=== PATIENT | female | born 1935 | race Caucasian/White ===

== ENCOUNTER 2019-09-11 16:11 | Inpatient (IN) | payer OTHER ==
--- NOTE | 2019-09-11 16:33 | RAD REPORT ---
EXAM DESCRIPTION: CT - Ct Stroke Brain Wo Cont - 09/11/2019 4:21 pm CLINICAL HISTORY: APHASIA Headache, drowsiness, CVA symptomology COMPARISON: Ct Stroke Brain Wo Cont dated 03/19/2017 TECHNIQUE: All CT scans are performed using dose optimization technique as appropriate and may inclu de automated exposure control or mA/KV adjustment according to patient size. FINDINGS: No intracranial hemorrhage, hydrocephalus or extra-axial fluid collection.Moderate general ized brain atrophy is present with mild periventricular and deep white matter chronic microvascular i schemic changes.No areas of brain edema or evidence of midline shift. Right vertebral atherosclerosis . The paranasal sinuses and mastoids are clear. The calvarium is intact. IMPRESSION: No acute intracranial abnormality. The findings were discussed with Dr. Hayden in the emergency room on 09/11/2019 at 4:28 p.m. by alayna clay.
[2019-09-11 16:39] LABS: Absolute Lymphocytes (CBC) 2.2 K/uL (0.7-4.9); Basophils % 1.8 % (0-1.3); Hematocrit 42.1 % (36.0-45.0); Lymphocytes % 24.3 % (15.3-44.8); MPV 8.4 fL (7.6-11.3); RBC Red Blood Cell Count 4.76 M/uL (3.86-4.86)
[2019-09-11] MEDS ORDERED: NA CHLORIDE 0.9% 0 ML IV ONE (16:42)
[2019-09-11] MEDS ORDERED: ALTEPLASE 0 ML IV ONE (16:43)
--- NOTE | 2019-09-11 16:47 | RAD REPORT ---
EXAM DESCRIPTION: RAD - Chest Single View - 09/11/2019 4:40 pm CLINICAL HISTORY: stroke protocol Chest pain. COMPARISON: Chest Single View dated 03/19/2017; CHEST PA AND LAT 2 VIEW dated 10/04/2011 FINDINGS: Portable technique limits examination quality. Mild interstitial opacities bilaterally suggests mild interstitial pulmonary edema. Small pleural eff usions suspected. The heart is moderately enlarged in size. No displaced fractures. IMPRESSION: Mild CHF.
[2019-09-11] MEDS ORDERED: DILTIAZEM 125 MG in NS 125 ML IVPB SCH (17:00)
[2019-09-11 17:28] LABS: Protime INR 0.95
--- NOTE | 2019-09-11 17:29 | ER ---
Nurse's Notes [facility] Name: Chelsey Santillan Age: 84 yrs Sex: Female : 1935 Arrival Date: 09/11/2019 Time: 16:14 Bed 6 Private MD: Diagnosis: Ischemic CVA;Hypertensive heart disease Presentation: 09/10 16:14 Chief complaint: Patient states: Acute onset of aphasia, right sided facial droop with ll1 drooling, right side not moving well for 30 min. TERRITORY SUPERVISOR per . Coronavirus screen: Ebola Screen: Patient denies travel to an Ebola-affected area in the 21 days before illness onset. Risk Assessment: Do you want to hurt yourself or someone else? Patient reports no desire to harm self or others. Onset of symptoms was September 11, 2019. 16:14 Acuity: NICOLE 2 ll1 16:14 Method Of Arrival: Ambulatory ll1 16:39 Initial Sepsis Screen: Does the patient meet any 2 criteria? RR > 20 per min. No. sv Patient's initial sepsis screen is negative. Does the patient have a suspected source of infection? No. Patient's initial sepsis screen is negative. Triage Assessment: 16:14 General: Appears in no apparent distress. uncomfortable, well developed, Behavior is sv cooperative, appropriate for age, quiet. Pain: Denies pain. Neuro: Level of Consciousness is awake, alert, obeys commands, Oriented to none unable to speak, pt is aphasic. [place] are equal bilaterally Moves all extremities. Full function Gait is steady, Speech with expressive aphasia noted, Facial droop on right. Cardiovascular: Rhythm is sinus rhythm. Respiratory: Airway is patent Respiratory effort is even, unlabored, Respiratory pattern is symmetrical, tachypnea. Derm: Skin is pink, warm \T\ dry. Historical: - Allergies: 16:16 Ciprofloxacin; sv 16:16 Morphine; sv 16:16 novicaine; sv 16:16 Ciprofloxacin; ll1 16:16 Morphine; ll1 16:16 novicaine; ll1 - PMHx: 16:16 Hyperlipidemia; Hypertension; sv 16:16 Hyperlipidemia; Hypertension; ll1 - PSHx: 16:16 Knee surgery; sv 16:16 Knee surgery; ll1 - Immunization history:: Adult Immunizations unknown. - Social history:: Smoking status: unknown. Screenin:32 Patient has been NPO before screening. The patient is alert, able to follow commands. ss The patient exhibits slurred or garbled speech. The patient is exhibiting difficulty speaking. The patient is exhibiting difficulty understanding words. The patient is unable to swallow own secretions without drooling or the need for suction. Bedside swallow screening discontinued. Patient kept NPO until cleared by Speech Therapy or Physician. The patient failed the bedside swallow screening. The patient will be kept NPO until cleared by Speech Therapy or Physician. Provider notified of bedside swallow screening results: Todd Hayden MD. 16:39 Abuse screen: Denies threats or abuse. Denies injuries from another. Nutritional sv screening: No deficits noted. Tuberculosis screening: No symptoms or risk factors identified. Fall Risk No fall in past 12 months (0 pts). Secondary diagnosis (15 points) impaired mobility, IV access (20 points). Ambulatory Aid- None/Bed Rest/Nurse Assist (0 pts). Gait- Weak (10 pts.). Mental Status- Overestimates/Forgets Limitations (15 pts.). Total Reyes Fall Scale indicates High Risk Score (45 or more points). Fall prevention measures have been instituted. Side Rails Up X 2 Placed Close to Nursing Station Frequent Obs/Assessments Occuring Family Present and informed to notify staff if the need to leave the bedside As available patient and family educated on Fall Prevention Program and Strategies. Assessment: 16:13 Reassessment: Pt to CT. sv 16:15 Reassessment: Pt back from CT. sv 16:37 Reassessment: Dr Hayden at bedside speaking with spouse regarding possible TPA. sv 16:50 Reassessment: Dr Hayden pt is not a candidate for TPA because the spouse gave the pt sv his Eliquis of 5 mg PO TERRITORY SUPERVISOR. 17:41 Reassessment: Patient appears in no apparent distress at this time. No changes from sv previously documented assessment. Patient and/or family updated on plan of care and expected duration. Pain level reassessed. 18:16 Reassessment: Patient appears in no apparent distress at this time. No changes from sv previously documented assessment. Patient and/or family updated on plan of care and expected duration. Pain level reassessed. Spouse at the bedside. 18:41 Reassessment: Patient appears in no apparent distress at this time. No changes from sv previously documented assessment. Patient and/or family updated on plan of care and expected duration. Pain level reassessed. 18:59 Reassessment: Patient appears in no apparent distress at this time. No changes from sv previously documented assessment. Patient and/or family updated on plan of care and expected duration. Pain level reassessed. 19:10 Reassessment: Informed Hector RN and Tristan RN that pt is to get a total of 20 mg sv Hydralazine in 5 mg increments and to keep SBP above [address] Hayden. 19:20 General: Appears in no apparent distress. comfortable, Behavior is calm, cooperative, rr5 appropriate for age. 19:20 Pain: Unable to use pain scale. aphasic. Neuro: Level of Consciousness is awake, alert, rr5 Oriented to person, place, time, Paralysis in right arm(s) Speech with expressive aphasia noted, Facial droop on right, Pupils are sluggish. Cardiovascular: Capillary refill < 3 seconds Patient's skin is warm and dry. Respiratory: Airway is patent Respiratory effort is even, Respiratory pattern is regular, symmetrical, tachypnea. GI: No signs and/or symptoms were reported involving the gastrointestinal system. : No signs and/or symptoms were reported regarding the genitourinary system. EENT: No signs and/or symptoms were reported regarding the EENT system. Derm: Skin is intact, is healthy with good turgor, Skin temperature is warm. Musculoskeletal: Capillary refill < 3 seconds. 20:10 Reassessment: Patient appears in no apparent distress at this time. cardizem drip rr5 titrate to 5 mg/hr. for the BP 155/60 mmHg. awaiting for room assignment. 20:42 Reassessment: Patient appears in no apparent distress at this time. for ICU admission rr5 awaiting for in patient orders. 21:47 Reassessment: Patient appears in no apparent distress at this time. cardizem drip rr5 increased to 15 h/hr BP 228/206 mmHg. 22:10 Reassessment: false teeth and necklace given to . rr5 23:00 Reassessment: Patient appears in no apparent distress at this time. diaper changed rr5 positive urine. for transfer to ICU. 23:18 Reassessment: Patient appears in no apparent distress at this time. transferred to ICU rr5 awake GCS 11/15 vitally stable, with IV cannula G 22 at right wrist intact ongoing cardizem drip. Vital Signs: 16:14 Resp 20; ll1 16:30 BP 245 / 77; Pulse 84; Resp 27; Temp 98.8; Pulse Ox 96% on R/A; sv 16:59 BP 244 / 84; Pulse 80; Resp 30; Pulse Ox 93% on R/A; sv 17:18 BP 248 / 95; Pulse 82; Resp 27; Pulse Ox 97% on 2 lpm NC; sv 17:40 BP 186 / 119; Pulse 79; Resp 21; Pulse Ox 97% on 2 lpm NC; sv 18:06 BP 231 / 83; Pulse 80; Resp 24; Pulse Ox 97% on 2 lpm NC; sv 18:19 BP 232 / 75; Pulse 71; Resp 25; Pulse Ox 98% on 2 lpm NC; sv 18:33 BP 229 / 70; Pulse 75; Resp 35; Pulse Ox 97% on 2 lpm NC; sv 18:58 BP 213 / 69; Pulse 78; Resp 39; Pulse Ox 100% on 2 lpm NC; sv 19:26 BP 198 / 130; Pulse 80; Resp 33; Temp 98.5; Pulse Ox 100% ; rr5 20:14 BP 155 / 60; Pulse 96; Resp 28; Pulse Ox 98% on 2 lpm NC; rr5 20:15 BP 155 / 60; rr5 21:00 BP 185 / 95; Pulse 93; Resp 31; Pulse Ox 98% on 3 lpm NC; rr5 21:47 BP 194 / 65; rr5 21:47 BP 194 / 65; Pulse 90; Resp 27; Pulse Ox 98% on 3 lpm NC; rr5 22:30 BP 228 / 206; Pulse 88; Resp 29; Temp 98.4; Pulse Ox 99% on 3 lpm NC; rr5 23:18 BP 160 / 137; Pulse 89; Resp 27; Temp 98.2; Pulse Ox 98% 3 lpm ; rr5 16:59 Pt placed on O2 \T\ 2L per NC. sv [place] Coma Score: 19:26 Eye Response: spontaneous(4). Verbal Response: none(1). Motor Response: obeys rr5 commands(6). Total: 11. 20:14 Eye Response: spontaneous(4). Verbal Response: none(1). Motor Response: obeys rr5 commands(6). Total: 11. 21:00 Eye Response: spontaneous(4). Verbal Response: none(1). Motor Response: obeys rr5 commands(6). Total: 11. :47 Eye Response: spontaneous(4). Verbal Response: none(1). Motor Response: obeys rr5 commands(6). Total: 11. 22:30 Eye Response: spontaneous(4). Verbal Response: none(1). Motor Response: obeys rr5 commands(6). Total: 11. 23:18 Eye Response: spontaneous(4). Verbal Response: none(1). Motor Response: obeys rr5 commands(6). Total: 11. 19:26 aphasic rr5 NIH Stroke Scale Scores: 16:19 NIHSS Score: 8 sv ED Course: 16:14 Patient arrived in ED. sv 16:14 Dilcia Jean Baptiste, ELINOR is Primary Nurse. sv 16:15 Triage completed. ll1 16:16 Todd Hayden MD is Attending Physician. kdr 16:16 Patient placed. ll1 16:21 CT Stroke Brain w/o Contrast In Process Unspecified. EDMS 16:24 Missed attempt(s): 22 gauge in right antecubital area. done by Milvia ALDRICH. Bleeding sv controlled, band aid applied, catheter tip intact. 16:26 Inserted saline lock: 22 gauge in right wrist, using aseptic technique. Blood sv collected. Flushed left with 5 ml normal saline. 16:32 Patient has correct armband on for positive identification. Placed in gown. Bed in low ss position. Call light in reach. Side rails up X2. telemetry monitor on. Pulse ox on. NIBP on. 16:40 Stroke CXR 1 View In Process Unspecified. EDMS 16:55 Inserted saline lock: 22 gauge in left wrist, using aseptic technique. Flushed left sv with 5 ml normal saline. 17:24 Mohan Johnson MD is Hospitalizing Provider. kdr 18:16 Awaiting bed assignment. sv 18:44 IV discontinued, intact, bleeding controlled, Pressure dressing applied, to the left sv wrist. 19:10 Report given to Tristan ALDRICH and Hector ALDRICH. sv 22:54 No provider procedures requiring assistance completed. rr5 Administered Medications: 16:58 Drug: Cardizem 5 mg/hr Route: IV; Rate: calculated rate; Site: right wrist; sv 17:18 Follow up: Rate change 7.5 calculated rate sv 17:41 Follow up: Response: No adverse reaction; Rate change 10 calculated rate sv 18:07 Follow up: Rate change 12.5 calculated rate sv 18:25 Follow up: Rate change 15 calculated rate sv 20:15 Follow up: BP 155 / 60; Rate change 5 mg/hr rr5 21:00 Follow up: Response: Blood pressure is elevated; Rate change 10 mg/hr rr5 21:47 Follow up: BP 194 / 65; Rate change 15 mg/hr rr5 22:35 Follow up: Response: Blood pressure is lowered; IV Status: Infusion continued upon rr5 admission 18:22 Drug: hydrALAZINE 2.5 mg Route: IV; Rate: calculated rate; Site: left wrist; sv 18:23 Follow up: Response: No adverse reaction; IV Status: Completed infusion sv 18:41 Drug: hydrALAZINE 2.5 mg Route: IV; Rate: calculated rate; Site: right wrist; sv 18:42 Follow up: Response: No adverse reaction; IV Status: Completed infusion sv 18:58 Drug: hydrALAZINE 5 mg Route: IV; Rate: calculated rate; Site: right wrist; sv 18:59 Follow up: Response: No adverse reaction; IV Status: Completed infusion; IV Intake: sv 0.25ml 19:30 Drug: hydrALAZINE 5 mg Route: IV; Rate: calculated rate; Site: right wrist; rr5 20:30 Follow up: Response: No adverse reaction; Blood pressure is lowered; IV Status: rr5 Completed infusion 22:30 Drug: hydrALAZINE 5 mg {Note: BP 228/206 mmHg.} Route: IV; Rate: calculated rate; Site: rr5 right wrist; 22:35 Follow up: Response: No adverse reaction; Blood sugar is lowered; IV Status: Infusion rr5 continued upon admission Intake: 18:59 IV: 0ml; Total: 0ml. sv Outcome: 17:28 Decision to Hospitalize by Provider. kdr 22:35 Admitted to ICU accompanied by nurse, via stretcher, room 6. rr5 22:35 Condition: stable rr5 22:35 Instructed on the need for admit. 23:47 Patient left the ED. rr5 NIH Stroke Scale - NIH Stroke Score Date: 09/11/2019 Time: 16:19 Total Score = 8 1a. Level of Consciousness (LOC) - 0(Alert) 1b. Level of Consciousness (LOC) (Year \T\ Age) - 2(Neither) 1c. LOC Commands (Open \T\ Closes Eyes/Health Safety And Environment Manager) - 0(Both) 2. Best Gaze (Lateral Gaze Paresis) - 0(Normal) 3. Visual Field Loss - 0(No visual loss) 4. Facial Palsy - 1(Minor Paralysis) 5a. Left Arm: Motor (10-second hold) - 0(No drift) 5b. Right Arm: Motor (10-second hold) - 0(No drift) 6a. Left Leg: Motor (5-second hold - always test supine) - 0(No drift) 6b. Right Leg: Motor (5-second hold - always test supine) - 0(No drift) 7. Limb Ataxia (finger/nose \T\ heel/ling - test with eyes open) - 0(Absent) 8. Sensory Loss (pinprick arms/legs/face) - 0(Normal) 9. Best Language: Aphasia (description/naming/reading) - 3(Mute, global aphasia) 10. Dysarthria (speech clarity - read or repeat words) - 2(Severe) 11. Extinction and Inattention (visual/tactile/auditory/spatial/personal) - 0(No abnormality) Initials: sv Signatures: Dispatcher [employer] EDDilcia Mcghee, RN RN sv Todd Hayden MD MD [facility] Milvia Martines RN RN ss Tristan Shah RN RN rr5 Stephane Ellis RN RN ll1 Corrections: (The following items were deleted from the chart) 16:59 16:26 Inserted saline lock: 22 gauge in left wrist, using aseptic technique. sv Blood collected. Flushed left with 5 ml normal saline sv 16:59 16:24 Missed attempt(s): 22 gauge in left antecubital area. done by Milvia ALDRICH. sv Bleeding controlled, band aid applied, catheter tip intact. sv 17:24 16:59 BP 244 / 84; Pulse 80bpm; Resp 30bpm; Pulse Ox 94% RA; sv sv 20:26 19:20 Respiratory: Airway is patent Respiratory effort is even, unlabored, rr5 Respiratory pattern is regular, symmetrical, rr5
--- NOTE | 2019-09-11 17:29 | EDPHYS ---
Physician Documentation [facility] Name: Chelsey Santillan Age: 84 yrs Sex: Female : 1935 Arrival Date: 09/11/2019 Time: 16:14 Bed 6 Private MD: ED Physician Todd Hayden HPI: 09/10 18:04 This 84 yrs old Female presents to ER via Ambulatory with complaints of S/S kdr of Possible Stroke. 18:04 The patient presents to the emergency department with weakness of the right upper kdr extremity, a speech or higher order brain function problem, aphasia, that is marked, that is complete. Onset: The symptoms/episode began/occurred suddenly, just prior to arrival, Some time between 2:00 PM and 3:15 PM. Context: occurred at home, occurred while the patient was at rest, sitting. Associated signs and symptoms: The patient has no apparent associated signs or symptoms. Severity of symptoms: At their worst the symptoms were incapacitating in the emergency department the symptoms are unchanged. Patient's baseline: Neuro: alert and fully oriented, Motor: no deficits, Ambulation: walks without assistance, Speech: Unable to speak, The patient has a previous history of. Current symptoms: Expressive aphasia . The patient has not experienced similar symptoms in the past. The patient has not recently seen a physician. Historical: - Allergies: 16:16 Ciprofloxacin; sv 16:16 Morphine; sv 16:16 novicaine; sv 16:16 Ciprofloxacin; ll1 16:16 Morphine; ll1 16:16 novicaine; ll1 - PMHx: 16:16 Hyperlipidemia; Hypertension; sv 16:16 Hyperlipidemia; Hypertension; ll1 - PSHx: 16:16 Knee surgery; sv 16:16 Knee surgery; ll1 - Immunization history:: Adult Immunizations unknown. - Social history:: Smoking status: unknown. ROS: 18:04 Constitutional: Negative for fever, chills, and weight loss, Eyes: Negative for injury, kdr pain, redness, and discharge, ENT: Negative for injury, pain, and discharge, Neck: Negative for injury, pain, and swelling, Cardiovascular: Negative for chest pain, palpitations, and edema, Respiratory: Negative for shortness of breath, cough, wheezing, and pleuritic chest pain, Abdomen/GI: Negative for abdominal pain, nausea, vomiting, diarrhea, and constipation, Back: Negative for injury and pain, : Negative for injury, bleeding, discharge, and swelling, MS/Extremity: Negative for injury and deformity, Skin: Negative for injury, rash, and discoloration, Psych: Negative for depression, anxiety, suicide ideation, homicidal ideation, and hallucinations, Allergy/Immunology: Negative for hives, rash, and allergies, Endocrine: Negative for neck swelling, polydipsia, polyuria, polyphagia, and marked weight changes, Hematologic/Lymphatic: Negative for swollen nodes, abnormal bleeding, and unusual bruising. 18:04 Neuro: Positive for speech changes, weakness, Right upper extremity slightly weak. Exam: 18:04 Constitutional: This is a well developed, well nourished patient who is awake, alert, kdr and in no acute distress. Eyes: Pupils equal round and reactive to light, extra-ocular motions intact. Lids and lashes normal. Conjunctiva and sclera are non-icteric and not injected. Cornea within normal limits. Periorbital areas with no swelling, redness, or edema. Neck: Trachea midline, no thyromegaly or masses palpated, and no cervical lymphadenopathy. Supple, full range of motion without nuchal rigidity, or vertebral point tenderness. No Meningismus. Chest/axilla: Normal chest wall appearance and motion. Nontender with no deformity. No lesions are appreciated. Cardiovascular: Regular rate and rhythm with a normal S1 and S2. No gallops, murmurs, or rubs. Normal PMI, no JVD. No pulse deficits. Respiratory: Lungs have equal breath sounds bilaterally, clear to auscultation and percussion. No rales, rhonchi or wheezes noted. No increased work of breathing, no retractions or nasal flaring. Abdomen/GI: Soft, non-tender, with normal bowel sounds. No distension or tympany. No guarding or rebound. No evidence of tenderness throughout. Back: No spinal tenderness. No costovertebral tenderness. Full range of motion. Skin: Warm, dry with normal turgor. Normal color with no rashes, no lesions, and no evidence of cellulitis. MS/ Extremity: Pulses equal, no cyanosis. Neurovascular intact. Full, normal range of motion. Psych: Awake, alert, with orientation to person, place and time. Behavior, mood, and affect are within normal limits. 18:04 Neuro: Orientation: unable to test, Mentation: responsive to voice able to follow commands, slow to respond, Memory: unable to test, Cranial nerves: facial droop noted on right, Cerebellar function: heel to ling testing is normal, Motor: moves all fours, strength is 5/5 in the left arm, right leg and left leg, strength is 4/5 in the right arm, Gait: not tested. Vital Signs: 16:14 Resp 20; ll1 16:30 BP 245 / 77; Pulse 84; Resp 27; Temp 98.8; Pulse Ox 96% on R/A; sv 16:59 BP 244 / 84; Pulse 80; Resp 30; Pulse Ox 93% on R/A; sv 17:18 BP 248 / 95; Pulse 82; Resp 27; Pulse Ox 97% on 2 lpm NC; sv 17:40 BP 186 / 119; Pulse 79; Resp 21; Pulse Ox 97% on 2 lpm NC; sv 18:06 BP 231 / 83; Pulse 80; Resp 24; Pulse Ox 97% on 2 lpm NC; sv 18:19 BP 232 / 75; Pulse 71; Resp 25; Pulse Ox 98% on 2 lpm NC; sv 18:33 BP 229 / 70; Pulse 75; Resp 35; Pulse Ox 97% on 2 lpm NC; sv 18:58 BP 213 / 69; Pulse 78; Resp 39; Pulse Ox 100% on 2 lpm NC; sv 19:26 BP 198 / 130; Pulse 80; Resp 33; Temp 98.5; Pulse Ox 100% ; rr5 20:14 BP 155 / 60; Pulse 96; Resp 28; Pulse Ox 98% on 2 lpm NC; rr5 20:15 BP 155 / 60; rr5 21:00 BP 185 / 95; Pulse 93; Resp 31; Pulse Ox 98% on 3 lpm NC; rr5 21:47 BP 194 / 65; rr5 21:47 BP 194 / 65; Pulse 90; Resp 27; Pulse Ox 98% on 3 lpm NC; rr5 22:30 BP 228 / 206; Pulse 88; Resp 29; Temp 98.4; Pulse Ox 99% on 3 lpm NC; rr5 23:18 BP 160 / 137; Pulse 89; Resp 27; Temp 98.2; Pulse Ox 98% 3 lpm ; rr5 16:59 Pt placed on O2 \T\ 2L per NC. sv NIH Stroke Scale Scores: 16:19 NIHSS Score: 8 sv Tayler Coma Score: 19:26 Eye Response: spontaneous(4). Verbal Response: none(1). Motor Response: obeys rr5 commands(6). Total: 11. 20:14 Eye Response: spontaneous(4). Verbal Response: none(1). Motor Response: obeys rr5 commands(6). Total: 11. 21:00 Eye Response: spontaneous(4). Verbal Response: none(1). Motor Response: obeys rr5 commands(6). Total: 11. 21:47 Eye Response: spontaneous(4). Verbal Response: none(1). Motor Response: obeys rr5 commands(6). Total: 11. 22:30 Eye Response: spontaneous(4). Verbal Response: none(1). Motor Response: obeys rr5 commands(6). Total: 11. 23:18 Eye Response: spontaneous(4). Verbal Response: none(1). Motor Response: obeys rr5 commands(6). Total: 11. 19:26 aphasic rr5 MDM: 17:28 Patient medically screened. kdr 18:04 Data reviewed: vital signs, nurses notes, old medical records, radiologic studies. kdr Counseling: I had a detailed discussion with the patient and/or guardian regarding: the historical points, exam findings, and any diagnostic results supporting the discharge/admit diagnosis, lab results, radiology results, the need for further work-up and treatment in the hospital. Physician consultation: Mohan Johnson MD. Physician consultation: Shiv Chapa MD The patient had been given Eliquis 5 mg PO just prior to arrival. IN discussion with Dr. Chapa, this is a contraindication to tPA. I explained this to the who had given her the medication. Admission orders: after a detailed discussion of the patient's condition and case, the admit orders are written by me. 09/10 16:15 Order name: Basic Metabolic Panel; Complete Time: :46 sv 09/10 16:15 Order name: CBC with Diff; Complete Time: :46 sv 09/10 16:15 Order name: Protime (+inr); Complete Time: :46 sv 09/10 16:15 Order name: Ptt, Activated; Complete Time: 20:46 sv 30 16:23 Order name: Troponin (emerg Dept Use Only); Complete Time: 20:46 kdr 30 16:23 Order name: Hepatic Function; Complete Time: 20:46 kdr 30 16:41 Order name: Glucose, Ancillary Testing; Complete Time: 20:46 EDSD 09/10 21:36 Order name: CKMB Creatine Kinase MB EDSD 09/10 21:36 Order name: CKMB Creatine Kinase MB EDSD 09/10 21:36 Order name: Creatine Phosphokinase EDSD 09/10 21:36 Order name: Creatine Phosphokinase EDSD 09/10 21:36 Order name: Lipid Profile EDSD 09/10 21:36 Order name: Lipid Profile EDSD 09/10 21:36 Order name: Troponin I [facility] 09/10 16:15 Order name: CT Stroke Brain w/o Contrast; Complete Time: 20:46 sv 09/10 16:15 Order name: Stroke CXR 1 View; Complete Time: 20:46 sv 09/10 16:15 Order name: EKG; Complete Time: 16:15 sv 09/10 20:50 Order name: CONS Physician Consult EDSD 09/10 21:36 Order name: NPO [facility] 09/10 21:36 Order name: NPO [facility] 09/10 21:36 Order name: Troponin I [facility] 09/10 21:36 Order name: Stroke Protocol [facility] 09/10 21:36 Order name: Carotid Artery Bilateral EDSD 09/10 16:15 Order name: Accucheck; Complete Time: 16:31 sv 30 16:15 Order name: Cardiac monitoring; Complete Time: 16:31 sv 09/10 16:15 Order name: EKG - Nurse/Tech; Complete Time: 16:31 sv 30 16:15 Order name: IV Saline Lock; Complete Time: 16:40 sv 30 16:15 Order name: Labs collected and sent; Complete Time: 16:32 sv 30 16:15 Order name: NPO; Complete Time: 16:32 sv 09/10 16:15 Order name: O2 Per Protocol; Complete Time: 16:32 sv 30 16:15 Order name: O2 Sat Monitoring; Complete Time: 16:32 sv 30 16:15 Order name: Stroke Swallow Screen; Complete Time: 16:32 sv 09/10 17:09 Order name: Labs - recollect needed; Complete Time: 17:09 sv 09/10 21:36 Order name: NPO EDMS Administered Medications: 16:58 Drug: Cardizem 5 mg/hr Route: IV; Rate: calculated rate; Site: right wrist; sv 17:18 Follow up: Rate change 7.5 calculated rate sv 17:41 Follow up: Response: No adverse reaction; Rate change 10 calculated rate sv 18:07 Follow up: Rate change 12.5 calculated rate sv 18:25 Follow up: Rate change 15 calculated rate sv 20:15 Follow up: BP 155 / 60; Rate change 5 mg/hr rr5 21:00 Follow up: Response: Blood pressure is elevated; Rate change 10 mg/hr rr5 21:47 Follow up: BP 194 / 65; Rate change 15 mg/hr rr5 22:35 Follow up: Response: Blood pressure is lowered; IV Status: Infusion continued upon rr5 admission 18:22 Drug: hydrALAZINE 2.5 mg Route: IV; Rate: calculated rate; Site: left wrist; sv 18:23 Follow up: Response: No adverse reaction; IV Status: Completed infusion sv 18:41 Drug: hydrALAZINE 2.5 mg Route: IV; Rate: calculated rate; Site: right wrist; sv 18:42 Follow up: Response: No adverse reaction; IV Status: Completed infusion sv 18:58 Drug: hydrALAZINE 5 mg Route: IV; Rate: calculated rate; Site: right wrist; sv 18:59 Follow up: Response: No adverse reaction; IV Status: Completed infusion; IV Intake: sv 0.25ml 19:30 Drug: hydrALAZINE 5 mg Route: IV; Rate: calculated rate; Site: right wrist; rr5 20:30 Follow up: Response: No adverse reaction; Blood pressure is lowered; IV Status: rr5 Completed infusion 22:30 Drug: hydrALAZINE 5 mg {Note: BP 228/206 mmHg.} Route: IV; Rate: calculated rate; Site: rr5 right wrist; 22:35 Follow up: Response: No adverse reaction; Blood sugar is lowered; IV Status: Infusion rr5 continued upon admission Disposition: 09/11/19 17:28 Hospitalization ordered by Mohan Johnson for Inpatient Admission. Preliminary diagnosis are Ischemic CVA, Hypertensive heart disease. - Bed requested for Intensive Care Unit. - Status is Inpatient Admission. rr5 - Condition is Serious. - Problem is new. - Symptoms are unchanged. NIH Stroke Scale - NIH Stroke Score Date: 09/11/2019 Time: 16:19 Total Score = 8 1a. Level of Consciousness (LOC) - 0(Alert) 1b. Level of Consciousness (LOC) (Year \T\ Age) - 2(Neither) 1c. LOC Commands (Open \T\ Closes Eyes/Gallery Or Museum Guide) - 0(Both) 2. Best Gaze (Lateral Gaze Paresis) - 0(Normal) 3. Visual Field Loss - 0(No visual loss) 4. Facial Palsy - 1(Minor Paralysis) 5a. Left Arm: Motor (10-second hold) - 0(No drift) 5b. Right Arm: Motor (10-second hold) - 0(No drift) 6a. Left Leg: Motor (5-second hold - always test supine) - 0(No drift) 6b. Right Leg: Motor (5-second hold - always test supine) - 0(No drift) 7. Limb Ataxia (finger/nose \T\ heel/ling - test with eyes open) - 0(Absent) 8. Sensory Loss (pinprick arms/legs/face) - 0(Normal) 9. Best Language: Aphasia (description/naming/reading) - 3(Mute, global aphasia) 10. Dysarthria (speech clarity - read or repeat words) - 2(Severe) 11. Extinction and Inattention (visual/tactile/auditory/spatial/personal) - 0(No abnormality) Initials: sv Signatures: Dispatcher [employer] [facility] Dilcia Jean Baptiste RN RN sv Todd Hayden MD MD kdr Roszak, Josh, PA PA jr8 Lidia Burks RN RN tl1 Tristan Shah RN RN rr5 Stephane Ellis RN RN ll1 Corrections: (The following items were deleted from the chart) 16:30 16:24 CT-STROKE BRAIN W/O CONTRAST+CT.RAD.BRZ ordered. [facility] EDSD 21:29 17:28 Hospitalization Ordered by Mohan Johnson MD for Inpatient Admission. tl1 Preliminary diagnosis is Ischemic CVA; Hypertensive heart disease. Bed requested for Intensive Care Unit. Status is Inpatient Admission. Condition is Serious. Problem is new. Symptoms are unchanged. kdr 21:31 21:29 09/11/2019 17:28 Hospitalization Ordered by Mohan Johnson MD for Inpatient tl1 Admission. Preliminary diagnosis is Ischemic CVA; Hypertensive heart disease. Bed requested for Intensive Care Unit. Status is Inpatient Admission. Condition is Serious. Problem is new. Symptoms are unchanged. tl1 23:47 21:31 09/11/2019 17:28 Hospitalization Ordered by Mohan Johnson MD for Inpatient rr5 Admission. Preliminary diagnosis is Ischemic CVA; Hypertensive heart disease. Bed requested for Intensive Care Unit. Status is Inpatient Admission. Condition is Serious. Problem is new. Symptoms are unchanged. tl1
[2019-09-11 17:32] LABS: Potassium 4.3 mmol/L (3.5-5.1)
[2019-09-11 17:42] LABS: ALT/SGPT 22 U/L (12-78); AST/SGOT 21 U/L (15-37); Albumin 3.7 g/dL (3.4-5.0); Alkaline Phosphatase 85 U/L (45-117); Bilirubin Direct 0.2 mg/dL (0-0.2); Bilirubin Total 0.4 mg/dL (0.2-1.0); Troponin (Emerg Dept Use Only) < 0.02 ng/mL (0.0-0.045)
[2019-09-11] MEDS ORDERED: HYDRALAZINE HCL 20 MG/ML VIAL ONE ×2 (18:28→22:43)
--- OUTSIDE RECORDS SUMMARY | 2019-09-11 18:45 | XMS REPORT | Clinical Summary ---
:1935 Author Organization [facility] Address [address] [place] [address] Care Team Providers Name Role Phone Sharperi Primary Care Provider Christiano Huber Unavailable Allergies Active Allergy Reactions Severity Noted Date Comments Ciprofloxacin 04/27/2017 Morphine 04/27/2017 [id number]-Thy-Tyz Reductase Other (See Comments) 018 Muscle aches Inhibitors Medications Medication Sig Dispensed Refills Start Date End Date Status clopidogrel (PLAVIX) Take 75 mg by 0 Active 75 mg tablet mouth daily. ezetimibe (ZETIA) 10 Take 10 mg by 0 Active mg tablet mouth daily. aspirin 81 MG EC Take 81 mg by 0 Active tablet mouth daily. levothyroxine Take 25 mcg by 0 A ctive (SYNTHROID, mouth Every LEVOTHROID) 25 MCG morning on an tablet empty stomach. albuterol-ipratropium Inhale 1 puff by 0 Active (COMBIVENT RESPIMAT) mouth via inhaler 20-100 mcg/actuation every 6 (six) Mist inhaler hours as needed for Wheezing or Shortness of Breath. budesonide (PULMICORT) Inhale 2 puffs by 1 Inhaler 0 8 Active 90 mcg/actuation mouth via inhaler inhaler 2 (two) times daily. amlodipine-valsartan Take 1 tablet by 0 05/03/2017 Active (EXFORGE) 10-320 mg mouth daily. per tablet Active Problems Problem Noted Date COPD (chronic obstructive pulmonary disease) 8 GERD (gastroesophageal reflux disease) 04/29/2017 Essential hypertension 04/29/2017 History of coronary artery stent placement in 1996 Hypothyroidism 04/29/2017 TIA (transient ischemic attack) 04/29/2017 Carotid stenosis, left 04/27/2017 Social History Tobacco Use Types Packs/Day Years Used Date Former Smoker 4 Smokeless Tobacco: Never Used Tobacco Cessation: Counseling Given: No Alcohol Use Drinks/Week oz/Week Comments Yes 60 Shots of liquor 36.0 2 shots/day Sex Assigned at Date Recorded Not on file Job Start Date Occupation Industry Not on file Not on file Not on file Travel History Travel Start Travel End No recent travel history available. Last Filed Vital Signs Not on file Plan of Treatment Not on file Implants Implanted Type Area Contract Clerk Automobile Device Shelf Model / Identifier Expiration Serial / Lot Date Matteo Vasc Knit Gld [id number] - [id number] Graft/Pa Left: GETINGE 12/11/2021 [id number] / Implanted: Qty: 1 on 04/28/2017 by Refugio Giraldo MD [facility] Carotid IND:MAQUET:ALONSO [id number] / Artery [id number] Results Not on fileafter 09/10/2018 Insurance Payer Benefit Plan / Group Subscriber ID Type Phone A ddress MEDICARE MEDICARE A B xxxxxxxxxx Medicare Advance Directives For more information, please contact:[address] [phone] Code Status Date Activated Date Inactivated Comments Full Code 04/28/2017 1:06 PM 05/02/2017 8:36 PM This code status was determined by: Patient Full Code 04/27/2017 3:56 PM 04/28/2017 1:06 PM This code status was determined by: Patient
--- OUTSIDE RECORDS SUMMARY | 2019-09-11 18:46 | XMS REPORT | Continuity of Care Document ---
:1935 Author Organization [facility] t Address [address] [place] [address] Care Team Providers Name Role Phone Shara IQBAL Primary Care Physician Unavailable Rickey Griffiths Attending Clinician LEFTY IQBAL M.D. Attending Clinician Unavailable SRINIVAS GIRALDO Attending Clinician Unavailable LEFTY IQBAL M.D. Admitting Clinician Unavailable SRINIVAS GIRALDO Admitting Clinician Unavailable Problems Condition Condition Condition Status Onset Resolution Last Treating Co mments Source Name Details Category Date Date Treatment Clinician Date COPD COPD Disease Active [facility] obstructiv obstructiv 00:00: Me dical e e 00 [place] pulmonary pulmonary disease) disease) GERD GERD Disease Active [facility] (gastroeso (gastroeso 2-16 [facility] kes - phageal phageal 00:00: Medical reflux reflux 00 Center disease) disease) Essential Essential Disease Active [facility] hypertensi hypertensi 2-16 [facility] k[facility] - on on 00:00: Medical 00 Center History of History of Disease Active [facility] coronary coronary 2-16 [facility] - artery artery 00:00: Medical stent stent 00 Center placement placement in 1995 in 1995 Hypothyroi Hypothyroi Disease Active [facility] dism dism 2-16 [facility] - 00:[facility]: Medical 00 Center TIA TIA Disease Active [facility] (transient (transient 2-16 [facility] kes - ischemic ischemic 00:00: Medica l attack) attack) 00 Center Carotid Carotid Disease Active [facility] stenosis, stenosis, 2-14 [facility] - left left 00:00: Medical 00 Center Allergies, Adverse Reactions, Alerts Allergy Allergy Status Severity Reaction(s) Onset Inactive Treating Comm ents Source Name Type Date Date Clinician Statins- Propensi Active Other (See Muscle [facility] to Comments) 2-16 [facility] - Reductas adverse 00:00: Medical e reaction 00 Center Inhibito s rs Ciproflo Propensi Active [facility] xacin ty to 2-14 [facility] - adverse 00:00: Medical reaction 00 [place] Morphine Propensi Active [facility] ty to 2-14 [facility] - adverse 00:00: Medical reaction 00 Center s Social History Social Habit Start Date Stop Date Quantity Comments Source Sex Assigned At [facility] Alcohol Comment 2017-04-27 2017-04-27 2 shots/day [facility] - 00:00:00 00:00:00 [facility] Smoking Status Start Date Stop Date Source Former smoker 2017-04-28 00:00:00 2017-04-28 00:00:00 [facility] Medications Ordered Filled Start Stop Current Ordering Indication Dosage Frequency Signature Comments Components Source Medication Medication Date Date Medication? Clinician (SIG) Name Name amlodipine- Yes 1{tbl} QD Take [address] [facility] [address] [facility] valsartan 2-20 tablet by [facility] - (EXFORGE) 00:00: mouth Medical 10-320 mg 00 daily. Center per tablet budesonide Yes 2{puff} Q.5D Inhale [address] [facility] (PULMICORT) 2-19 puffs by [facility] - 90 00:00: mouth via Medical mcg/actuati [address] on inhaler (two) times daily. albuterol-i Yes 1{puff} Inhale [address] [facility] pratropium 2-16 puff by [facility] - (COMBIVENT 11:45: mouth via Me dical RESPIMAT) 49 inhaler Center 20-100 every 6 mcg/actuati (six) on Mist hours as inhaler needed for Wheezing or Shortness of Breath. levothyroxi Yes 25ug Take [address] [facility] [address] ne 2-16 mcg by [facility] - (SYNTHROID, 10:18: mouth Medic al LEVOTHROID) 50 Every Center 25 MCG morning on tablet an empty stomach. aspirin 81 2017- Yes 81mg QD Take [address] MG EC 2-16 by mouth [facility] - tablet 10:07: daily. [address] clopidogrel Yes 75mg QD Take [address] [facility] (PLAVIX) 75 2-16 by mouth [facility] - mg tablet 10:01: [facility] [address] ezetimibe Yes 10mg QD Take [address] [facility] (ZETIA) 10 2-16 by mouth [facility] - mg tablet 10:01: daily. [address] Procedures This patient has no known procedures. Encounters Start End Encounter Admission Attending Care Care Encounter Source Date/Time Date/Time Type Type Clinicians Facility Department ID 2018-10-19 2018-10-19 Office AARON Khan [id number] 95 08:39:39 09:03:10 Visit [facility] [id number] Surgical [id number] Specialti [id number] [place] 2017-07-07 2017-07-07 Inpatient [facility] MED [id number] 12:36:00 12:36:00 Gonzales ORTIZ M.D. [facility] Results Test Description Test Time Test Comments Results Result [facility] e Comments TISSUE EXAM 2017-05-03 Surgical Pathology 12:05:00 Report Case: [id number] Authorizing Provider: Refugio Giraldo MD Collected: 04/28/2017 1152 Ordering Location: [facility] Received: 04/28/2017 1529 PERIOPERATIVE SERVICES Pathologist: Saul Galvez MD Specimen: Plaque, Left Carotid Endarterectomy ARTERY, LEFT CAROTID, ENDARTERECTOMY:CALCIFI C ATHEROSCLEROTIC PLAQUE WITH BONY METAPLASIA Signing Pathologist Direct Phone Line: [phone] ally signed by Saul Galvez MD on 05/03/2017 at 12:05 [id number]; [id number] stenosisLeft carotid plaqueReceived fresh labeled "plaque", description "left carotid" are two hale-white to yellow-nelson cylindrical previously incised portion of fibrous tissue measuring 2.5 cm and 2.9 cm in length and 0.6 cm in diameter. Sectioning reveals focal calcification. Roofing Apprentice sections are submitted in cassette A1 for decalcification. DB/plPerformed MAGNESIUM 2017-05-02 09:59:00 Test Item Value Reference Range Interpretation Comme nts MAGNESIUM (BEAKER) (test code = 627) 1.8 mg/dL 1.6-2.6 BASIC METABOLIC [id number] 09:59:00 Test Item Value Reference Range Interpretation Comments SODIUM (BEAKER) 136 meq/L 136-145 (test code = 381) POTASSIUM (BEAKER) 3.8 meq/L 3.5-5.1 (test code = 379) CHLORIDE (BEAKER) 103 meq/L 98-107 (test code = 382) CO2 (BEAKER) (test 26 meq/L 22-29 code = 355) BLOOD UREA NITROGEN 16 mg/dL 7-21 (BEAKER) (test code = 354) CREATININE (BEAKER) 0.93 mg/dL 0.57-1.25 (test code = 358) GLUCOSE RANDOM 205 mg/dL 70-105 H (BEAKER) (test code = 652) CALCIUM (BEAKER) 9.2 mg/dL 8.4-10.2 (test code = 697) EGFR (BEAKER) (test 57 mL/min/1.73 ESTIMA ALLISON GFR IS code = 1092) sq m NOT ACCURATE CREATININE CLEARANCE IN PREDICTING GLOMERULAR FILTRATION RATE . ESTIMATED GFR I S NOT APPLICABLE FOR DIALYSIS PATIEN TS. CBC W/PLT COUNT & AUTO [id number] 09:39:00 Test Item Value Reference Range Interpretation Comments WHITE BLOOD CELL COUNT (BEAKER) 8.4 K/ L 3.5-10.5 (test code = 775) RED BLOOD CELL COUNT (BEAKER) 3.46 M/ L 3.93-5.22 L (test code = 761) HEMOGLOBIN (BEAKER) (test code = 10.4 GM/DL 11.2-15.7 L 410) HEMATOCRIT (BEAKER) (test code = 32.4 % 34.1-44.9 L 411) MEAN CORPUSCULAR VOLUME (BEAKER) 93.6 fL 79.4-94.8 (test code = 753) MEAN CORPUSCULAR HEMOGLOBIN 30.1 pg 25.6-32.2 (BEAKER) (test code = 751) MEAN CORPUSCULAR HEMOGLOBIN CONC 32.1 GM/DL 32.2-35.5 L (BEAKER) (test code = 752) RED CELL DISTRIBUTION WIDTH 14.0 % 11.7-14.4 (BEAKER) (test code = 412) PLATELET COUNT (BEAKER) (test 281 K/CU MM 150-450 code = 756) MEAN PLATELET VOLUME (BEAKER) 10.2 fL 9.4-12.3 (test code = 754) NUCLEATED RED BLOOD CELLS 0 /100 WBC 0-0 (BEAKER) (test code = 413) NEUTROPHILS RELATIVE PERCENT 71 % (BEAKER) (test code = 429) LYMPHOCYTES RELATIVE PERCENT 18 % (BEAKER) (test code = 430) MONOCYTES RELATIVE PERCENT 7 % (BEAKER) (test code = 431) EOSINOPHILS RELATIVE PERCENT 2 % (BEAKER) (test code = 432) BASOPHILS RELATIVE PERCENT 1 % (BEAKER) (test code = 437) NEUTROPHILS ABSOLUTE COUNT 5.95 K/ L 1.56-6.13 (BEAKER) (test code = 670) LYMPHOCYTES ABSOLUTE COUNT 1.51 K/ L 1.18-3.74 (BEAKER) (test code = 414) MONOCYTES ABSOLUTE COUNT (BEAKER) 0.57 K/ L 0.24-0.36 H (test code = 415) EOSINOPHILS ABSOLUTE COUNT 0.20 K/ L 0.04-0.36 (BEAKER) (test code = 416) BASOPHILS ABSOLUTE COUNT (BEAKER) 0.05 K/ L 0.01-0.08 (test code = 417) IMMATURE GRANULOCYTES-RELATIVE 1 % 0-1 PERCENT (BEAKER) (test code = 2801) [id number] 05:21:00 Test Item Value Reference Range Interpretation Comments MAGNESIUM (BEAKER) (test code = 1.9 mg/dL 1.6-2.6 627) BASIC METABOLIC [id number] 05:21:00 Test Item Value Reference Range Interpretation Comments SODIUM (BEAKER) 136 meq/L 136-145 (test code = 381) POTASSIUM (BEAKER) 4.0 meq/L 3.5-5.1 (test code = 379) CHLORIDE (BEAKER) 104 meq/L 98-107 (test code = 382) CO2 (BEAKER) (test 25 meq/L 22-29 code = 355) BLOOD UREA NITROGEN 16 mg/dL 7-21 (BEAKER) (test code = 354) CREATININE (BEAKER) 0.85 mg/dL 0.57-1.25 (test code = 358) GLUCOSE RANDOM 124 mg/dL 70-105 H (BEAKER) (test code = 652) CALCIUM (BEAKER) 9.2 mg/dL 8.4-10.2 (test code = 697) EGFR (BEAKER) (test 64 mL/min/1.73 ESTIMA ALLISON GFR IS code = 1092) sq m NOT ACCURATE CREATININE CLEARANCE IN PREDICTING GLOMERULAR FILTRATION RATE . ESTIMATED GFR I S NOT APPLICABLE FOR DIALYSIS PATIEN TS. CBC (HEMOGRAM ONLY)2017-05-01 04:35:00 Test Item Value Reference Range Interpretation Comments WHITE BLOOD CELL COUNT (BEAKER) 8.8 K/ L 3.5-10.5 (test code = 775) RED BLOOD CELL COUNT (BEAKER) 3.51 M/ L 3.93-5.22 L (test code = 761) HEMOGLOBIN (BEAKER) (test code = 10.5 GM/DL 11.2-15.7 L 410) HEMATOCRIT (BEAKER) (test code = 32.9 % 34.1-44.9 L 411) MEAN CORPUSCULAR VOLUME (BEAKER) 93.7 fL 79.4-94.8 (test code = 753) MEAN CORPUSCULAR HEMOGLOBIN 29.9 pg 25.6-32.2 (BEAKER) (test code = 751) MEAN CORPUSCULAR HEMOGLOBIN CONC 31.9 GM/DL 32.2-35.5 L (BEAKER) (test code = 752) RED CELL DISTRIBUTION WIDTH 14.3 % 11.7-14.4 (BEAKER) (test code = 412) PLATELET COUNT (BEAKER) (test 227 K/CU MM 150-450 code = 756) MEAN PLATELET VOLUME (BEAKER) 10.1 fL 9.4-12.3 (test code = 754) NUCLEATED RED BLOOD CELLS 0 /100 WBC 0-0 (BEAKER) (test code = 413) [id number] 05:59:00 Test Item Value Reference Range Interpretation Comments PROTIME (BEAKER) (test code = 14.8 seconds 11.7-14.7 H 759) INR (BEAKER) (test code = 370) 1.2 <=5.9 PARTIAL THROMBOPLASTIN TIME 32.6 seconds 22.5-36.0 (BEAKER) (test code = 760) RECOMMENDED COUMADIN/WARFARIN INR THERAPY RANGESSTANDARD DOSE: 2.0 - 3.0 Includes: PROPHYLAXIS forvenous thrombosis, systemic embolization; TREATMENT for venous thrombosis and/or pulmonary embolus.HIGH RISK: Target INR is 2.5-3.5 for patients with mechanical heart valves.[id number] 05:55:00 Test Item Value Reference Range Interpretation Comments MAGNESIUM (BEAKER) (test code = 1.8 mg/dL 1.6-2.6 627) BASIC METABOLIC [id number] 05:55:00 Test Item Value Reference Range Interpretation Comments SODIUM (BEAKER) 136 meq/L 136-145 (test code = 381) POTASSIUM (BEAKER) 4.3 meq/L 3.5-5.1 (test code = 379) CHLORIDE (BEAKER) 106 meq/L 98-107 (test code = 382) CO2 (BEAKER) (test 23 meq/L 22-29 code = 355) BLOOD UREA NITROGEN 15 mg/dL 7-21 (BEAKER) (test code = 354) CREATININE (BEAKER) 0.88 mg/dL 0.57-1.25 (test code = 358) GLUCOSE RANDOM 131 mg/dL 70-105 H (BEAKER) (test code = 652) CALCIUM (BEAKER) 9.1 mg/dL 8.4-10.2 (test code = 697) EGFR (BEAKER) (test 61 mL/min/1.73 ESTIMA ALLISON GFR IS code = 1092) sq m NOT ACCURATE CREATININE CLEARANCE IN PREDICTING GLOMERULAR FILTRATION RATE . ESTIMATED GFR I S NOT APPLICABLE FOR DIALYSIS PATIEN TS. B-TYPE NATRIURETIC FACTOR (BNP)2017-04-30 05:54:00 Test Item Value Reference Range Interpretation Comments B-TYPE NATRIURETIC PEPTIDE (BEAKER) 115 pg/mL 0-100 H (test code = 700) CBC (HEMOGRAM ONLY)2017-04-30 05:09:00 Test Item Value Reference Range Interpretation Comments WHITE BLOOD CELL COUNT (BEAKER) 10.9 K/ L 3.5-10.5 H (test code = 775) RED BLOOD CELL COUNT (BEAKER) 3.71 M/ L 3.93-5.22 L (test code = 761) HEMOGLOBIN (BEAKER) (test code = 11.1 GM/DL 11.2-15.7 L 410) HEMATOCRIT (BEAKER) (test code = 34.5 % 34.1-44.9 411) MEAN CORPUSCULAR VOLUME (BEAKER) 93.0 fL 79.4-94.8 (test code = 753) MEAN CORPUSCULAR HEMOGLOBIN 29.9 pg 25.6-32.2 (BEAKER) (test code = 751) MEAN CORPUSCULAR HEMOGLOBIN CONC 32.2 GM/DL 32.2-35.5 (BEAKER) (test code = 752) RED CELL DISTRIBUTION WIDTH 14.2 % 11.7-14.4 (BEAKER) (test code = 412) PLATELET COUNT (BEAKER) (test 193 K/CU MM 150-450 code = 756) MEAN PLATELET VOLUME (BEAKER) 10.4 fL 9.4-12.3 (test code = 754) NUCLEATED RED BLOOD CELLS 0 /100 WBC 0-0 (BEAKER) (test code = 413) TSH/FREE T4 IF [id number] 13:12:00 Test Item Value Reference Range Interpretation Comments THYROID STIMULATING HORMONE 2.58 uIU/mL 0.35-4.94 (BEAKER) (test code = 772) [id number] 05:31:00 Test Item Value Reference Range Interpretation Comments MAGNESIUM (BEAKER) (test code = 1.8 mg/dL 1.6-2.6 627) BASIC METABOLIC [id number] 05:31:00 Test Item Value Reference Range Interpretation Comments SODIUM (BEAKER) 138 meq/L 136-145 (test code = 381) POTASSIUM (BEAKER) 4.2 meq/L 3.5-5.1 (test code = 379) CHLORIDE (BEAKER) 108 meq/L 98-107 H (test code = 382) CO2 (BEAKER) (test 23 meq/L 22-29 code = 355) BLOOD UREA NITROGEN 17 mg/dL 7-21 (BEAKER) (test code = 354) CREATININE (BEAKER) 0.95 mg/dL 0.57-1.25 (test code = 358) GLUCOSE RANDOM 120 mg/dL 70-105 H (BEAKER) (test code = 652) CALCIUM (BEAKER) 8.6 mg/dL 8.4-10.2 (test code = 697) EGFR (BEAKER) (test 56 mL/min/1.73 ESTIMA ALLISON GFR IS code = 1092) sq m NOT ACCURATE CREATININE CLEARANCE IN PREDICTING GLOMERULAR FILTRATION RATE . ESTIMATED GFR I S NOT APPLICABLE FOR DIALYSIS PATIEN TS. [id number] 05:19:00 Test Item Value Reference Range Interpretation Comments PROTIME (BEAKER) (test code = 15.7 seconds 11.7-14.7 H 759) INR (BEAKER) (test code = 370) 1.3 <=5.9 PARTIAL THROMBOPLASTIN TIME 29.4 seconds 22.5-36.0 (BEAKER) (test code = 760) RECOMMENDED COUMADIN/WARFARIN INR THERAPY RANGESSTANDARD DOSE: 2.0 - 3.0 Includes: PROPHYLAXIS forvenous thrombosis, systemic embolization; TREATMENT for venous thrombosis and/or pulmonary embolus.HIGH RISK: Target INR is 2.5-3.5 for patients with mechanical heart valves.CBC (HEMOGRAM ONLY)2017-04-29 04:59:00 Test Item Value Reference Range Interpretation Comments WHITE BLOOD CELL COUNT (BEAKER) 9.1 K/ L 3.5-10.5 (test code = 775) RED BLOOD CELL COUNT (BEAKER) 3.74 M/ L 3.93-5.22 L (test code = 761) HEMOGLOBIN (BEAKER) (test code = 11.1 GM/DL 11.2-15.7 L 410) HEMATOCRIT (BEAKER) (test code = 34.9 % 34.1-44.9 411) MEAN CORPUSCULAR VOLUME (BEAKER) 93.3 fL 79.4-94.8 (test code = 753) MEAN CORPUSCULAR HEMOGLOBIN 29.7 pg 25.6-32.2 (BEAKER) (test code = 751) MEAN CORPUSCULAR HEMOGLOBIN CONC 31.8 GM/DL 32.2-35.5 L (BEAKER) (test code = 752) RED CELL DISTRIBUTION WIDTH 14.5 % 11.7-14.4 H (BEAKER) (test code = 412) PLATELET COUNT (BEAKER) (test 213 K/CU MM 150-450 code = 756) MEAN PLATELET VOLUME (BEAKER) 10.6 fL 9.4-12.3 (test code = 754) NUCLEATED RED BLOOD CELLS 0 /100 WBC 0-0 (BEAKER) (test code = 413) HEMOGLOBIN [id number] 14:48:00 Test Item Value Reference Range Interpretation Comments HEMOGLOBIN A1C (BEAKER) (test code = 6.4 % 4.3-6.1 H 368) RAD, CHEST, 1 VIEW, NON [id number] 14:45:00Reason for exam:->cvc placementShould this be performed at the bedside?->YesFINAL REPORT AP chest HISTORY: Line placement COMPARISON: 04/27/2017 IMPRESSION :Right IJ central venous catheter present with tip at mid SVC. Grossly stable cardiac silhouette. Lungs hypoinflated. Mild interstitial prominence. No effusion or pneumothorax. Signed: Pamela Gomez MDReport Verified Date/Time: 04/28/2017 14:45:00 Reading Location: [facility] Reading Room SODIUM NA-STAT LAB 2017-04-28 13:32:00 Test Item Value Reference Range Interpretation Comments SODIUM (BEAKER) (test code = 381) 137 meq/L 135-148 POTASSIUM-STAT [id number] 13:32:00 Test Item Value Reference Range Interpretation Comments POTASSIUM (BEAKER) (test code = 3.9 meq/L 3.6-5.5 379) HGB/HCT (H&H) - STAT [id number] 13:32:00 Test Item Value Reference Range Interpretation Comments HEMOGLOBIN (BEAKER) (test code = 12.9 g/dL 12.0-15.0 410) HEMATOCRIT (BEAKER) (test code = 38.0 % 36.0-45.0 411) BLOOD GAS, [id number] 13:32:00 Test Item Value Reference Range Interpretation Comments PH ARTERIAL (BEAKER) (test code = 7.30 7.35-7.45 L 383) PCO2 ARTERIAL (BEAKER) (test code 46 mmHg 35-45 H = 384) PO2 ARTERIAL (BEAKER) (test code 90 mmHg 80-90 = 385) O2 SATURATION ARTERIAL (BEAKER) 96.7 % 96.0-97.0 (test code = 386) HCO3 ARTERIAL (BEAKER) (test code 23 mmol/L 21-29 = 388) BASE EXCESS ARTERIAL (BEAKER) -4.4 mmol/L -2.0-3.0 L (test code = 387) PATIENT TEMPERATURE (BEAKER) 35.3 C (test code = 1818) FIO2 (BEAKER) (test code = 1819) 60.0 % Only if arterial line in place and/or patient on [id number]-STAT LAB 2017-04-28 13:32:00 Test Item Value Reference Range Interpretation Comments GLUCOSE RANDOM (BEAKER) (test code 166 mg/dL 70-110 H = 652) RAD, CHEST, 2 [id number] 22:00:00Reason for exam:->Pre opShould this be performed at the bedside?->NoFINAL REPORT Exam: 2 view chest INDICATION: Shortness of breath IMPRESSION: No comparison studies are available. The large lung volumes, apical radiolucency and relatively flat di aphragm on the lateral view are nonspecific but concerning for underlying obstructive lung disease/emphysema. Thin curvilinear opacities are noted in both lungs with a predominantly basilar distribution. Subsegmental atelectasis and/or scarring favored. Small underlying mass lesion cannot be excluded.No evidence of pulmonary edema, large pleural effusion or pneumothorax. The heart is borderline enlarged. Mediastinal contours are sharp with an extensively calcified and mildly ectatic thoracic aorta.Bones demonstrate demineralization compatible with senescent osteopenia. Several mild anterior wedgecompression deformities are noted in the midthoracic spine, age indeterminant but possibly chronic given the adjacent degenerative changes. Signed: Rohit Ragland MDReport Verified Date/Time: 04/27/201722:00:10 Reading Location: [address] Reading Room LIPID PANEL 2017-04-27 19:22:00 Test Item Value Reference Range Interpretation Comments TRIGLYCERIDES (BEAKER) (test code = 142 mg/dL 540) CHOLESTEROL (BEAKER) (test code = 175 mg/dL 631) HDL CHOLESTEROL (BEAKER) (test code 49 mg/dL = 976) LDL CHOLESTEROL CALCULATED (BEAKER) 98 mg/dL (test code = 633) Triglyceride Reference Range: Low Risk <150 Borderline 150-199 High Risk 200-499 Very High Risk >=500Cholesterol Reference Range: Low Risk <200 Borderline 200-239 High Risk >240HDL Cholesterol Reference Range: Low Risk >=60 High Risk <40LDL Cholesterol Reference Range: Optimal <100 Near Optimal 100-129 Borderline 130-159 High 160-189 Very High >=190BASIC METABOLIC [id number] 19:22:00 Test Item Value Reference Range Interpretation Comments SODIUM (BEAKER) 139 meq/L 136-145 (test code = 381) POTASSIUM (BEAKER) 4.3 meq/L 3.5-5.1 (test code = 379) CHLORIDE (BEAKER) 107 meq/L 98-107 (test code = 382) CO2 (BEAKER) (test 22 meq/L 22-29 code = 355) BLOOD UREA NITROGEN 20 mg/dL 7-21 (BEAKER) (test code = 354) CREATININE (BEAKER) 0.84 mg/dL 0.57-1.25 (test code = 358) GLUCOSE RANDOM 99 mg/dL 70-105 (BEAKER) (test code = 652) CALCIUM (BEAKER) 9.5 mg/dL 8.4-10.2 (test code = 697) EGFR (BEAKER) (test 65 mL/min/1.73 ESTIMA ALLISON GFR IS code = 1092) sq m NOT ACCURATE CREATININE CLEARANCE IN PREDICTING GLOMERULAR FILTRATION RATE . ESTIMATED GFR I S NOT APPLICABLE FOR DIALYSIS PATIEN TS. [id number] 18:58:00 Test Item Value Reference Range Interpretation Comments PARTIAL THROMBOPLASTIN TIME 27.3 seconds 22.5-36.0 (BEAKER) (test code = 760) CBC W/PLT COUNT & AUTO [id number] 18:54:00 Test Item Value Reference Range Interpretation Comments WHITE BLOOD CELL COUNT (BEAKER) 9.6 K/ L 3.5-10.5 (test code = 775) RED BLOOD CELL COUNT (BEAKER) 4.47 M/ L 3.93-5.22 (test code = 761) HEMOGLOBIN (BEAKER) (test code = 13.4 GM/DL 11.2-15.7 410) HEMATOCRIT (BEAKER) (test code = 40.6 % 34.1-44.9 411) MEAN CORPUSCULAR VOLUME (BEAKER) 90.8 fL 79.4-94.8 (test code = 753) MEAN CORPUSCULAR HEMOGLOBIN 30.0 pg 25.6-32.2 (BEAKER) (test code = 751) MEAN CORPUSCULAR HEMOGLOBIN CONC 33.0 GM/DL 32.2-35.5 (BEAKER) (test code = 752) RED CELL DISTRIBUTION WIDTH 14.1 % 11.7-14.4 (BEAKER) (test code = 412) PLATELET COUNT (BEAKER) (test 242 K/CU MM 150-450 code = 756) MEAN PLATELET VOLUME (BEAKER) 10.6 fL 9.4-12.3 (test code = 754) NUCLEATED RED BLOOD CELLS 0 /100 WBC 0-0 (BEAKER) (test code = 413) NEUTROPHILS RELATIVE PERCENT 70 % (BEAKER) (test code = 429) LYMPHOCYTES RELATIVE PERCENT 19 % (BEAKER) (test code = 430) MONOCYTES RELATIVE PERCENT 7 % (BEAKER) (test code = 431) EOSINOPHILS RELATIVE PERCENT 2 % (BEAKER) (test code = 432) BASOPHILS RELATIVE PERCENT 1 % (BEAKER) (test code = 437) NEUTROPHILS ABSOLUTE COUNT 6.73 K/ L 1.56-6.13 H (BEAKER) (test code = 670) LYMPHOCYTES ABSOLUTE COUNT 1.84 K/ L 1.18-3.74 (BEAKER) (test code = 414) MONOCYTES ABSOLUTE COUNT (BEAKER) 0.69 K/ L 0.24-0.36 H (test code = 415) EOSINOPHILS ABSOLUTE COUNT 0.19 K/ L 0.04-0.36 (BEAKER) (test code = 416) BASOPHILS ABSOLUTE COUNT (BEAKER) 0.07 K/ L 0.01-0.08 (test code = 417) IMMATURE GRANULOCYTES-RELATIVE 1 % 0-1 PERCENT (BEAKER) (test code = 2801)
[2019-09-11] MEDS: NA CHLORIDE 0.9% 1,000 ML IV SCH (21:34)
[2019-09-11] MEDS ORDERED: Nicardipine in Saline, Iso-Osm 20 MG/200 ML IV.SOLN. IV PRN (21:36)
[2019-09-11] MEDS ORDERED: NA CHLORIDE 0.9% 250 ML ONE (22:04)
[2019-09-12 00:19] VITALS: BMI 35.0
[2019-09-12] MEDS: NA CHLORIDE 0.9% 1,000 ML IV SCH (00:48)
[2019-09-12] MEDS ORDERED: Nicardipine/NS 25 MG/250 ML KIT IV ONE (00:54)
[2019-09-12] MEDS: METOPROLOL TARTRATE 5 MG/5 ML INJ IV PRN ×3 (02:20→11:21)
[2019-09-12 05:37] LABS: BUN Blood Urea Nitrogen 31 mg/dL (7-18); Bicarbonate 23 mmol/L (21-32); CKMB Creatine Kinase MB 2.9 ng/mL (0.3-3.6); Creatine Phosphokinase 90 U/L (26-192); Glucose Level 134 mg/dL (74-106); HDL Cholesterol 68 mg/dL (40-60); LDL Cholesterol, Calculated 104 (<130); Potassium 4.6 mmol/L (3.5-5.1); Sodium Level 138 mmol/L (136-145); Troponin I < 0.02 ng/mL (0.0-0.045)
[2019-09-12] MEDS ORDERED: FUROSEMIDE 40 MG/4 ML VIAL IV ONE (08:12)
[2019-09-12] MEDS ORDERED: dexAMETHasone 4 MG/ML VIAL IV ONE (08:12)
[2019-09-12] MEDS: FOLIC ACID 1 MG in NA CHLORIDE 0.9% 50 ML IV SCH (08:47)
[2019-09-12] MEDS: ASPIRIN EC 81 MG TAB PO SCH (08:49)
[2019-09-12] MEDS: CLOPIDOGREL 75 MG TABLET PO SCH (08:49)
[2019-09-12] MEDS ORDERED: CLONIDINE 0.3 MG/PATCH TD SCH (09:00)
--- NOTE | 2019-09-12 13:06 | P.HP ---
Certification for Inpatient Patient admitted to: Inpatient With expected LOS: >2 Midnights Practitioner: I am a practitioner with admitting privileges, knowledge of patient current condition, hospital course, and medical plan of care. Services: Services provided to patient in accordance with Admission requirements found in Title 42 Section 412.3 of the Code of Federal Regulations Patient History Date of Service: 09/12/19 Reason for admission: SPEECH DIFFICULTY, SUDDEN AND WEAKNESS. History of Present Illness: MS. SPIVEY IS 84 YEARS OLD FORMER HEAVY SMOKER WHO JUST QUIT SMOKING ABOUT A YEAR AGO, COMES TO ER WITH SPEECH DIFFICULTY AND LATER DEVELOPED R SIDE BODY WEAKNESS. GAVE HER ELIQUIS ON THE WAY AND SO SHE DISQUALIFIED FOR TPA. 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 SHE CAN'T COMMUNICATE. Allergies morphine Allergy (Verified 09/12/19 00:12) Itching/Hives/Rash ciprofloxacin Adverse Reaction (Verified 09/12/19 00:12) muscle cramps novicaine Allergy (Uncoded 09/12/19 00:12) Unknown Home Medications: Ezetimibe [Zetia*] 10 mg PO DAILY 01/10/15 Levothyroxine [Synthroid*] 25 mcg PO [id number] 01/10/15 Amlodipine/Valsartan [Exforge 10-320 mg Tablet] 1 each PO DAILY #30 tablet 03/20/17 Clopidogrel Bisulfate [Plavix] 75 mg PO DAILY #30 tablet 03/20/17 - Past Medical/Surgical History Diabetic: No -: HTN -: Hyperlipidemia -: heart stents -: leg stents -: copd -: Right knee replacement -: Bladder suspension - Family History Mother -: Other (see notes) Notes: gout Father -: Heart disease Notes: Heart attack - Social History Smoking Status: Former smoker Alcohol use: Yes CD- Drugs: No Caffeine use: Yes Place of Residence: Home Review of Systems is unable to be obtained General: Weakness Physical Examination - Vital Signs Temperature: 98.7 F Blood Pressure: 152/53 Pulse: 62 Respirations: 27 Pulse Ox (%): 95 - Physical Exam General: Alert, Moderate distress, Obese HEENT: Atraumatic, PERRLA, Mucous membr. moist/pink, EOMI, Sclerae nonicteric Neck: Supple, 2+ carotid pulse no bruit, No LAD, Without JVD or thyroid abnormality Respiratory: Clear to auscultation bilaterally, Normal air movement Cardiovascular: Regular rate/rhythm, Normal S1 S2 Gastrointestinal: Normal bowel sounds, No tenderness Musculoskeletal: No tenderness Integumentary: No rashes Neurological: Abnormal speech (COMPLETE GLOBALAPHASIA), Abnormal strength (DENSE R HEMIPLEGIA, FLACCID IT IS ACUTE. NO REFLEXES.) Lymphatics: No axilla or inguinal lymphadenopathy - Studies Laboratory Data (last 24 hrs) 09/11/19 17:05: Total Bilirubin 0.4, AST 21, ALT 22, Alkaline Phosphatase 85 09/11/19 17:05: PT 11.2, INR 0.95, APTT 29.1 09/11/19 17:05: Sodium 138, Potassium 4.3, BUN 32 H, Creatinine 1.46 H, Glucose 120 H 09/11/19 16:28: WBC 9.2, Hgb 14.1, Hct 42.1, Plt Count 266 Assessment and Plan - Problems (Diagnosis) (1) Right hemiplegia Current Visit: Yes Status: Acute Plan: SHE IS NOT ABLE TO TAKE ANYTHING ORAL. SHE IS BREATHING HEAVY AND RAPID. I SUSPECT SHE WILL HAVE A POOR OUTCOME. I TALKED TO . HE WANTS DNR STATUS. KEEP HER NPO. IV ON SALINELOCK NOW SHE HAD MILD CHF ON CXR. (2) Arterial ischemic stroke, MCA, left, acute Current Visit: Yes Status: Acute Plan: GLOBAL APHASIA. AND SEVERE R HEMIPLEGIA. OBTUNDATION. MAY END UP IN NH OR HOSPICE. - Advance Directives Does patient have a Living Will: No Does patient have a Durable POA for Healthcare: No
--- NOTE | 2019-09-12 15:01 | RAD REPORT ---
EXAM DESCRIPTION: CT - Head Brain Wo Cont - 09/12/2019 2:51 pm CLINICAL HISTORY: CVA COMPARISON: Ct Stroke Brain Wo Cont dated 09/11/2019 TECHNIQUE: Axial 5 mm thick images of the head were obtained without IV contrast. All CT scans are performed using dose optimization technique as appropriate and may include automated exposure control or mA/KV adjustment according to patient size. FINDINGS: No intracranial hemorrhage is present. A large 8 x 3 centimeter area of decreased attenuat ion has developed in the lateral left frontal lobe and portions of the anterior left parietal lobe an d superior left temporal lobe. This extends from cortex down to the basal ganglia. Wang matter- white matter differentiation has been lost in this region. No gyrus or sulcal structures identifiable. No other areas of acute infarction seen. Underlying atrophy and chronic ischemic changes are noted. No m idline shift. There may be very subtle or slight mass effect on the left lateral ventricle. Arterial and physiologic calcifications are noted. Delete select Mastoid air cells and visualized portions of the paranasal sinuses are clear. No acute bony findings. IMPRESSION: Acute nonhemorrhagic CVA approximately 8 x 3 cm in size involving the lateral left front al lobe and occluding portions of the anterior left parietal lobe and superior most left temporal lob e. Mass-effect is mild. There is no midline shift. Underlying atrophy and chronic ischemic change.
[2019-09-12] MEDS: ENOXAPARIN 30 MG/0.3 ML SQ SCH (15:19)
--- NOTE | 2019-09-12 18:49 | RAD REPORT ---
EXAM DESCRIPTION: US - CP - 09/12/2019 6:13 pm CLINICAL HISTORY: CVA COMPARISON: Carotid Artery Bilateral dated 04/14/2017 TECHNIQUE: Real-time sonographic evaluation of bilateral carotid and vertebral systems was performed . Wang scale and Doppler interrogation were performed with waveform tracing bilaterally. FINDINGS: Exam is technically limited. Patient had limited ability to cooperate with the examination . Normal high resistance waveforms are noted in both external carotid arteries. The common carotid ar teries and internal carotid arteries show normal low resistance waveforms. Significant calcified and noncalcified plaquing changes are present in the right bulb and proximal IC A region. No significant plaquing changes noted on the left. There is a left ICA stent in place. Righ t-sided velocities are elevated. Elevated ICA/CCA ratio present. Antegrade flow seen in both vertebral arteries. Velocity values and ratios were recorded and are retained in the patient's imaging records. IMPRESSION: Hemodynamically significant stenosis in the right carotid vasculature. Accurate percent stenosis cannot be obtained due to the amount of patient motion affecting the values. Patent stent in the left ICA. No significant left-sided stenosis.
[2019-09-12] MEDS ORDERED: IPRATROPIUM BROM 0.5MG/2.5ML NEB PRN (19:14)
--- NOTE | 2019-09-12 21:00 | EKG ---
Test Date: 2019-09-11 Test Time: 16:40:08 Ethnology Professor: DANDY MEASUREMENT RESULTS: Intervals: Rate: 78 [place]: 180 QRSD: 138 QT: 414 QTc: 471 [place]: P: 19 [place]: 180 QRS: -81 T: 99 INTERPRETIVE STATEMENTS: Normal sinus rhythm Left axis deviation Right bundle branch block Possible Lateral infarct, age undetermined Abnormal ECG Compared to ECG 03/19/2017 15:22:30 Myocardial infarct finding now present T-wave abnormality no longer present Possible ischemia no longer present Electronically Signed On 09-12-19 20:57:09 CDT by Koko Bella
--- NOTE | 2019-09-13 00:34 | CON ---
Reason For Consultation: Consultation called because the patient had sudden onset of difficulty spea rosmery and weakness on the right side. History Of Present Illness: Ms. Santillan is an 84-year-old patient who was a heavy smoker, recently rodolfo t, in addition to having stroke risk factors of hypertension, dyslipidemia, coronary artery disease, status post cardiac stents, and COPD, developed right-sided weakness and difficulty expressing hersel f on the 30th in the afternoon. She actually came into [facility] within the window for tis rodolfo plasminogen activator. However, at the onset of her symptoms, her gave her one of his El iquis 5 mg tablets. She arrived at 1614 in the emergency room and her symptom onset was between 2 p. m. and 3:15 p.m., i.e., [address] head [address] scan was negative. However, because she had just received the Eliquis and that is listed as a contraindication to receiving tissue plasminogen activa tor because of the high risk of hemorrhagic conversion, she was not given tPA. Her NIH Stroke Scale was 7. She was put on aspirin, Plavix, folic acid, and high-dose statin and admitted to the ICU. Dr Chichi Johnson, her primary care physician, discussed her case with her son and she was made do not resuscit ate. Her interval repeat head CT scan done today did show an acute nonhemorrhagic stroke measuring 8 x 3 cm in the left lateral frontal lobe including portions of the anterior left parietal lobe and bliss perior left temporal lobe. There was mild mass effect without midline shift. Further, there was und erlying chronic ischemic disease and atrophy. The stroke is a large stroke. At the time of my evalu ation, the patient was in the ICU. She did open the left eye mildly to stimulation tactilely on the left upper and lower extremities. She had the right eye closed. Right facial drooping was noted. R ight arm was not moving. Right leg moved mildly to stimulation. She was with nasal cannula, not int ubated. She had good air movement and abdomen was soft. Extremities showed no significant edema or cyanosis. On her cranial nerve exam, pupils were equally round and reactive. Her gaze was conjugate without deviation and she had positive doll eyes. Her right face was drooping and left face had goo d nasolabial fold. Could not fully assess sensation. She did have a bedside swallowing evaluation, which she failed. In terms of movement, the left upper extremity moved to stimulation. Could not fo llow any instructions to lift her arms or legs on either side. However, there was withdrawal on the left arm and left leg to stimulation and she moved those about. On the right, no movement in the upp er extremity. There was mild withdrawal of the foot with stimulation of the lower extremity. Could not assess her coordination in right upper and lower extremities. Could not assess for any extinctio n given the patient's level of functioning. Her NIH Stroke Scale was 20. Past Medical History: As indicated and she has chronic obstructive pulmonary disease. Past Surgical History: Right knee replacement, bladder suspension. Allergies: MORPHINE, CIPROFLOXACIN, NOVOCAIN. Medications At Home: Zetia 10 mg daily, Synthroid 25 mcg daily, Exforge 10/320 daily, Plavix 75 mg d aily. Family History: Her father had cardiac disease and mother had gout. Social History: Smoked in the past, also used alcohol and caffeine. Review of Systems: Unable to obtain. Physical Examination: Vital Signs: Blood pressure 173/69, pulse 71, respiratory rate 18 to 29, temperature 98.7, saturatio n 96%. Weight 204 pounds, height 5 feet 4 inches, BMI 35. General: Ms. Santillan is in the ICU bed resting and she is in no significant distress. HEENT: She appears normocephalic, atraumatic. Sclerae are anicteric. Oropharynx is moist. Neck: Supple. Chest: Clear. Heart: Regular. Extremities: Show no edema or cyanosis. Neurological: She does alert to voice, may turn her head. She has a right nasolabial fold decrease. No gaze preference. Pupils are equally round and reactive, around 3 mm. Rest of her cranial nerve s, she has a poor gag reflex. Otherwise, no other findings on cranial nerves. Motor examination, le ft upper extremity, unable to fully assess strength. She does move with stimulation very well the le ft arm and leg. Right arm, no movement some withdrawal movement by stimulating the planta r surface of the right foot. Unable to assess sensation and coordination. Reflexes symmetric. Tone is normal. Unable to assess her gait. Laboratory Studies: Complete blood count with differential is normal. Coagulation panel shows INR 0 .95. Chemistries showed a creatinine of 1.55, glucose 134, calcium 9.5, HDL cholesterol 68, LDL chol esterol 104, triglycerides 149. Cholesterol/HDL ratio 2.97. Assessment: Ms. Santillan is an 84-year-old patient with a large left likely MCA branch stroke with dens e right arm paresis, right face paresis, and right leg paresis as well. There appears to be sensory deficits on that side. She has a significant global aphasia and high NIH Stroke Scale. She received 5 mg of Eliquis just prior to coming to the hospital, was not deemed to be a candidate for tPA, alth ough INR was in the normal range. It is unclear if the effects of just receiving the Eliquis would c omplicate tPA and potentially cause an intracerebral hemorrhage. Code status is do not resuscitate. Plan: 1.May continue with conservative treatment, doing aspirin, Plavix, folic acid, high-dose statin. 2.The patient would be best served at this point on hospice care with some range of motion activitie s. She is unable to protect her airway. The potential for a feeding tube is likely to improve her c ondition for chances of recovery or any meaningful improvement. It is not recommended at this point. 3.This was discussed with Dr. Johnson and he will review the plans with the patient's son. TEAGAN/CHRISTIAN Voice ID: [id number] Report ID: [id number]
[2019-09-13] MEDS: METOPROLOL TARTRATE 5 MG/5 ML INJ IV PRN ×2 (02:23→13:41)
[2019-09-13] MEDS: ALBUTEROL 2.5 MG/3 ML NEB SOL NEB PRN ×2 (08:15→13:38)
[2019-09-13] MEDS: IPRATROPIUM BROM 0.5MG/2.5ML NEB SCH ×3 (08:15→20:15)
[2019-09-13] MEDS: FOLIC ACID 1 MG in NA CHLORIDE 0.9% 50 ML IV SCH (08:26)
[2019-09-13] MEDS: NITROGLYCERIN 0.4 MG/HR (10 MG) PATCH TD SCH (08:26)
[2019-09-13] MEDS: ASPIRIN EC 81 MG TAB PO SCH ×2 (08:27→17:29)
[2019-09-13] MEDS: CLOPIDOGREL 75 MG TABLET PO SCH (08:27)
[2019-09-13] MEDS ORDERED: NA CHLORIDE 0.9% 250 ML ONE (08:35)
--- NOTE | 2019-09-13 13:01 | P.PN ---
Subjective Date of Service: 09/13/19 Chief Complaint: SPEECH DIFFICULTY, SUDDEN AND WEAKNESS. Subjective: Improving SHE IS LOT LESS RESTLESS TODAY. SHE UNDERSTANDS SOME TODAY. Review of Systems is unable to be obtained Physical Examination - Vital Signs Temperature: 98.2 F Blood Pressure: 163/64 Pulse: 68 Respirations: 18 Pulse Ox (%): 94 - Physical Exam General: Mild distress, Obese HEENT: Atraumatic, PERRLA, EOMI Neck: Supple, JVD not distended Respiratory: Clear to auscultation bilaterally, Normal air movement Cardiovascular: Regular rate/rhythm, Normal S1 S2 Gastrointestinal: Normal bowel sounds, No tenderness Musculoskeletal: No tenderness Integumentary: No rashes Neurological: Abnormal strength (RUL TOTALLY PARALYZED. RLL SHE HAS POWER 2/5, STARTING TO MOVE.), Abnormal tone (R BODY FLACCID.), Abnormal reflexes (R PLANTER EXTENSOR.) Lymphatics: No axilla or inguinal lymphadenopathy - Studies Medications List Reviewed: Yes Assessment And Plan - Current Problems (Diagnosis) (1) Right hemiplegia Current Visit: Yes Status: Acute Plan: SHE IS NOT ABLE TO TAKE ANYTHING ORAL. SHE IS BREATHING HEAVY AND RAPID. I SUSPECT SHE WILL HAVE A POOR OUTCOME. I TALKED TO . HE WANTS DNR STATUS. KEEP HER NPO. IV ON SALINELOCK NOW SHE HAD MILD CHF ON CXR. NOW HEMIPARESIS. REFER TO REHAB. START ASPIRIN VIA DOBHHOFF TUBE. (2) Arterial ischemic stroke, MCA, left, acute Current Visit: Yes Status: Acute Plan: GLOBAL APHASIA. AND SEVERE R HEMIPLEGIA. OBTUNDATION. MAY END UP IN NH OR HOSPICE.
--- NOTE | 2019-09-13 14:16 | RAD REPORT ---
EXAM DESCRIPTION: RAD - Chest Single View - 09/13/2019 2:10 pm CLINICAL HISTORY: Dobhoff placement Chest pain. COMPARISON: Chest Single View dated 09/11/2019; Chest Single View dated 03/19/2017; CHEST PA AND LAT 2 VIEW dated 10/04/2011 FINDINGS: The enteric tube is coiled in the stomach.
[2019-09-13] MEDS: ENOXAPARIN 30 MG/0.3 ML SQ SCH (16:27)
--- NOTE | 2019-09-13 16:49 | RAD REPORT ---
EXAM DESCRIPTION: RAD - Abdomen Single View - 09/13/2019 4:44 pm CLINICAL HISTORY: reassess NGT dobhoff guidewire unable to detach Pain COMPARISON: CT ABD PELVIS W CONTRAST dated 08/02/2014 FINDINGS: Enteric tube is coiled in the stomach.
[2019-09-13] MEDS ORDERED: JEVITY 1.5 CAL LIQUID 1,000 ML BOT RTH SCH (17:00)
[2019-09-13] MEDS: D5W 1,000 ML IV SCH (18:39)
[2019-09-14] MEDS: IPRATROPIUM BROM 0.5MG/2.5ML NEB SCH ×4 (00:10→19:30)
[2019-09-14] MEDS: CLOPIDOGREL 75 MG TABLET PO SCH (09:00)
[2019-09-14] MEDS: ASPIRIN EC 81 MG TAB PO SCH (09:00)
[2019-09-14] MEDS: NITROGLYCERIN 0.4 MG/HR (10 MG) PATCH TD SCH (09:42)
[2019-09-14] MEDS: FOLIC ACID 1 MG in NA CHLORIDE 0.9% 50 ML IV SCH (09:42)
--- NOTE | 2019-09-14 10:08 | P.PN ---
Subjective Date of Service: 09/14/19 Chief Complaint: SPEECH DIFFICULTY, SUDDEN AND WEAKNESS. Subjective: No new changes SHE IS LOT LESS RESTLESS TODAY. SHE UNDERSTANDS SOME TODAY. MS. SPIVEY IS ABOUT THE SAME AT THIS POINT. Review of Systems is unable to be obtained Physical Examination - Vital Signs Temperature: 96.8 F Blood Pressure: 178/76 Pulse: 70 Respirations: 23 Pulse Ox (%): 94 - Physical Exam General: Alert, Mild distress, Obese HEENT: Atraumatic, PERRLA, EOMI Neck: Supple, JVD not distended Respiratory: Clear to auscultation bilaterally, Normal air movement Cardiovascular: Regular rate/rhythm, Normal S1 S2 Gastrointestinal: Normal bowel sounds, No tenderness Musculoskeletal: No tenderness Integumentary: No rashes Neurological: Abnormal speech (NON VERBAL. GLOBAL APHASIA. ), Abnormal strength (RUL -0/5 RLL-2/5) Lymphatics: No axilla or inguinal lymphadenopathy - Studies Medications List Reviewed: Yes Assessment And Plan - Current Problems (Diagnosis) (1) Right hemiplegia Current Visit: Yes Status: Acute Plan: SHE IS NOT ABLE TO TAKE ANYTHING ORAL. SHE IS BREATHING HEAVY AND RAPID. I SUSPECT SHE WILL HAVE A POOR OUTCOME. I TALKED TO . HE WANTS DNR STATUS. KEEP HER NPO. IV ON SALINELOCK NOW SHE HAD MILD CHF ON CXR. NOW HEMIPARESIS. REFER TO REHAB. START ASPIRIN VIA DOBHHOFF TUBE. I AM WAITING FOR REHAB ANSWER. SHE WILL END UP IN NH. PROGNOSIS IS POOR. SHE WILL NEED G TUBE SHE IS HIGH RISK FOR ASPIRATION. (2) Arterial ischemic stroke, MCA, left, acute Current Visit: Yes Status: Acute Plan: GLOBAL APHASIA. AND SEVERE R HEMIPLEGIA. OBTUNDATION. MAY END UP IN NH OR HOSPICE.
--- NOTE | 2019-09-14 13:04 | RAD REPORT ---
EXAM DESCRIPTION: RAD - Barium Swallow Modified - 09/14/2019 12:45 pm CLINICAL HISTORY: dysphagia COMPARISON: None. TECHNIQUE: The patient was given liquid, semi-solid and solid forms of barium. Lateral view fluorosc opic imaging was performed in conjunction with speech pathology service. FINDINGS: Cineloop acquisitions: 36 Fluoro time: 4 minutes 12 seconds Laryngeal penetratrion: cleared with honey Aspiration: cough with thin and nectar. Vallecular residue is moderate to severe with pudding. IMPRESSION: Modified barium swallow as summarized above and fully detailed on speech pathology repor alyse
[2019-09-14] MEDS: D5W 1,000 ML IV SCH ×2 (15:00→16:36)
[2019-09-14] MEDS: ENOXAPARIN 30 MG/0.3 ML SQ SCH (16:35)
--- NOTE | 2019-09-14 17:00 | CON ---
Date of Consultation: 09/14/2019 Reason For Consultation: Possible PEG tube placement. Patient with status post stroke. History Of Present Illness: Patient is an 84-year-old female, heavy smoker, just quit a year ago, [facility] to the hospital with difficulty speaking, sudden speech weakness. CT scan on admission was unrema rkable; however, repeat imaging revealed a very large 8 x 3 cm stroke brain. Patient failed swallow study today and therefore, GI consult requested for possible placement of PEG tube. Past Medical History: Significant for hypertension, hyperlipidemia, coronary artery disease, heart s tents, leg stents, peripheral vascular disease, COPD, right knee replacement, bladder resuspension. Medications: Include Zetia, Synthroid, Exforge (amlodipine and valsartan), and Plavix. Allergies: TO MORPHINE, CIPRO, NOVOCAIN. ALSO IT LOOKS LIKE AT HOME, ELIQUIS. IT LOOKS LIKE HER CO USIN GAVE HER ON THE WAY TO THE HOSPITAL ACCORDING TO THE NOTES. Family History: Mother had gout. Father had heart disease, heart attack. Social History: Former smoker. . Positive for alcohol. Positive for caffeine. Lives at [facility]. Review of Systems: Patient has weakness, status post stroke. No melena, hematochezia, hematemesis, coffee-ground emesis , hematuria, dysuria, polydipsia, chest pain, short of breath, seizure, syncope, muscle aches, joint aches, backaches, anxiety, depression. Physical Examination: Vital Signs: The patient is 5 feet, 424 pounds. BMI of 35 kg/sq m. HEENT: Normocephalic, atraumatic. Anicteric. Pupils equal, round, and reactive to light. Extraocu lar movements are intact. Oropharynx is clear. Neck: Supple. No masses. Respirations: Clear to ausculation bilaterally. Cardiac: Regular rate and rhythm. No gallops. Abdomen: Positive bowel sounds. Soft, nontender, nondistended. No hepatosplenomegaly. Extremities: No clubbing, cyanosis, or edema. 2+ pulses. Neurologic: Alert, but not oriented. Unclear if sensation is intact. Motor, she is limited, status post recent stroke. Laboratory Data: Patient has a white count of 9.2, hemoglobin of 14.1, hematocrit of 42.1, MCV of 88 , platelet count 266, polys 63%, lymphocytes 24%, monocytes 7%, eosinophils 4%, basophils 3%. Patien t has a PT of 11.2, INR of 0.95, PTT of 29.1. Yesterday, sodium 138, potassium 4.6, chloride 107, bi carb 23, BUN of 31, creatinine of 1.6, glucose 134, calcium 9.5. Total bilirubin 0.4, direct bilirub in 0.2, AST of 21, ALT of 22, alkaline phosphatase 85. CK 2.9. Rapid troponin I less than 0.2 x2. Total protein 8.0, albumin 3.7. Triglycerides 149, cholesterol 102, LDL of 104, HDL of 68. Report brain CT on September 10 revealed no acute intracranial abnormality. Repeat head CT on September 11 reve aled acute nonhemorrhagic stroke approximately 8 x 3 cm involving the left lateral frontal lobe inclu ding portions of the anterior left parietal lobe and superior-most left temporal lobe. Mass-effect i s mild. There is no midline shift. There is underlying atrophy and chronic ischemic changes noted. Chest x-ray on the 2nd revealed enteric tube coiled in the stomach, same on the 3rd. Modified barium swallow performed today revealed physical residue is moderate to severe with pudding, laryngeal pene tration clear with honey. Impression: 1.Dysphagia, status post large left 8 x 3 cm stroke in the brain. Residual dysphagia. We will need alternative enteral feedings. However, patient is status post stroke. Brain CT on September [address] on September 12, 2019, after discussion with Neurology that appears this is too early after such a large stroke to perform an endoscopic procedure with risk of decreased perfusion to the brain durin g the procedure and movement of the head as well with precipitate further injury to patient possibly, therefore, we will need to use Dobbhoff tube or NG tube feeding or TPN to maintain nutrition until p atient is adequately out of the increased risk of injury at least 1 to 3 weeks depending on assessmen t. We will need probably have repeat imaging prior to EGD with PEG tube placement because of anatomi suzanne changes may be taken place as patient continues to heal, status post such a large stroke with hea d CT again showing an 8 x 3 cm acute nonhemorrhagic stroke involving the left lateral frontal lobe an d including portions of the anterior left parietal lobe and superior-most left temporal lobe as well with mild mass effect and a midline shift and underlying atrophy and chronic ischemic changes noted. Recommendation: Placed Dobbhoff tube or NG tube. Continue tube feeds 1 to 3 weeks depending on reas sessment with further imaging and neurological clearance prior to EGD with PEG tube placement. Sukhwinder Love currently and we will follow along with you on this. CAMILLA/CHRISTIAN Voice ID: [id number] Report ID: [id number]
[2019-09-14 19:30] LABS: Basophils % 1.1 % (0-1.3); Hematocrit 39.5 % (36.0-45.0); Lymphocytes % 17.5 % (15.3-44.8); MPV 8.6 fL (7.6-11.3); RBC Red Blood Cell Count 4.42 M/uL (3.86-4.86)
[2019-09-14 19:41] LABS: Albumin 3.3 g/dL (3.4-5.0); Bilirubin Total 0.6 mg/dL (0.2-1.0); Magnesium 2.2 mg/dL (1.8-2.4); Protein, Total 6.9 g/dL (6.4-8.2)
[2019-09-14 20:27] LABS: Blood Morphology Comment NOT SEEN (NOT SEEN); Platelet Estimate ADEQ
[2019-09-15] MEDS: ALBUTEROL 2.5 MG/3 ML NEB SOL NEB PRN (01:08)
[2019-09-15] MEDS: IPRATROPIUM BROM 0.5MG/2.5ML NEB SCH ×4 (01:08→19:50)
[2019-09-15] MEDS: ASPIRIN EC 81 MG TAB PO SCH (08:47)
[2019-09-15] MEDS: CLOPIDOGREL 75 MG TABLET PO SCH (08:47)
[2019-09-15] MEDS: D5W 1,000 ML IV SCH (09:38)
[2019-09-15] MEDS: NITROGLYCERIN 0.4 MG/HR (10 MG) PATCH TD SCH (09:39)
[2019-09-15] MEDS: dexAMETHasone 4 MG/ML VIAL IV SCH (09:39)
[2019-09-15] MEDS: FOLIC ACID 1 MG in NA CHLORIDE 0.9% 50 ML IV SCH (09:42)
--- NOTE | 2019-09-15 15:43 | P.PN ---
Subjective Date of Service: 09/15/19 Chief Complaint: MAJOR STROKE Subjective: No new changes MS. SPIVEY IS NOT IMPROVING. SHE IS THE SAME. Review of Systems is unable to be obtained Physical Examination - Vital Signs Temperature: 97.7 F Blood Pressure: 136/63 Pulse: 74 Respirations: 22 Pulse Ox (%): 99 - Physical Exam General: Moderate distress, Obese HEENT: Atraumatic, PERRLA, EOMI Neck: Supple, JVD not distended Respiratory: Clear to auscultation bilaterally, Normal air movement Cardiovascular: Regular rate/rhythm, Normal S1 S2 Gastrointestinal: Normal bowel sounds, No tenderness Musculoskeletal: No tenderness Integumentary: No rashes Neurological: Abnormal speech (UNABLE TO SPEAK.), Abnormal strength (R SIDE DENSE HEMIPLEGIA. RLQ UNPREDICTABLE MOVMENTS BUT FOR LAST TWO DAYS SHE IS NOT MOVING IT AT ALL FOR ME .RUL TOTALLY PARALYZED.) Lymphatics: No axilla or inguinal lymphadenopathy - Studies Medications List Reviewed: Yes Assessment And Plan - Current Problems (Diagnosis) (1) Right hemiplegia Current Visit: Yes Status: Acute Plan: SHE IS NOT ABLE TO TAKE ANYTHING ORAL. SHE IS BREATHING HEAVY AND RAPID. I SUSPECT SHE WILL HAVE A POOR OUTCOME. I TALKED TO . HE WANTS DNR STATUS. KEEP HER NPO. IV ON SALINELOCK NOW SHE HAD MILD CHF ON CXR. NOW HEMIPARESIS. REFER TO REHAB. START ASPIRIN VIA DOBHHOFF TUBE. I AM WAITING FOR REHAB ANSWER. SHE WILL END UP IN [place]. PROGNOSIS IS POOR. SHE WILL NEED G TUBE SHE IS HIGH RISK FOR ASPIRATION. I TALKED TO DR. RODRIGUEZ. HE CAN'T DO G TUBE FOR TWO WEEKS. I ASKED IF HE CAN INSERT DOBHOFF WE NEED TO FEED HER NURSES WERE NOT ABLE TO DO IT. (2) Arterial ischemic stroke, MCA, left, acute Current Visit: Yes Status: Acute Plan: GLOBAL APHASIA. AND SEVERE R HEMIPLEGIA. OBTUNDATION. MAY END UP IN NH OR HOSPICE. Discharge Plan: Senior Living - Code Status/Comfort Care Code Status Assessed: Yes Code Status: Do Not Attempt Resuscitat
[2019-09-15] MEDS: ENOXAPARIN 30 MG/0.3 ML SQ SCH (16:36)
[2019-09-15] MEDS ORDERED: AA 4.25%/D10W/ELECTROLYTES 2,000 ML, Lipids 20% 250 ML with MULTIVITAMINS INJ 10 ML IV SCH ×3 (17:00)
--- NOTE | 2019-09-15 18:55 | RAD REPORT ---
EXAM DESCRIPTION: RAD - Abdomen 1 View (KUB) - 09/15/2019 6:49 pm CLINICAL HISTORY: confirm dobhoff placement Pain COMPARISON: No comparisons FINDINGS: Tip of the enteric tube is in the distal stomach.
[2019-09-15] MEDS: JEVITY 1.5 CAL LIQUID 1,000 ML BOT FT SCH (23:49)
[2019-09-16] MEDS: IPRATROPIUM BROM 0.5MG/2.5ML NEB SCH ×4 (02:35→19:55)
[2019-09-16] MEDS: ALBUTEROL 2.5 MG/3 ML NEB SOL NEB PRN ×4 (02:35→19:55)
[2019-09-16 05:05] LABS: Absolute Lymphocytes (CBC) 1.6 K/uL (0.7-4.9); Basophils % 0.7 % (0-1.3); Hematocrit 39.5 % (36.0-45.0); Lymphocytes % 13.1 % (15.3-44.8); MPV 8.6 fL (7.6-11.3); RBC Red Blood Cell Count 4.43 M/uL (3.86-4.86)
[2019-09-16 05:25] LABS: Albumin 3.3 g/dL (3.4-5.0); Bilirubin Total 0.3 mg/dL (0.2-1.0); Magnesium 2.4 mg/dL (1.8-2.4); Phosphorus 3.8 mg/dL (2.5-4.9); Potassium 4.4 mmol/L (3.5-5.1); Prealbumin 26.1 mg/dL (20-40); Protein, Total 7.1 g/dL (6.4-8.2)
[2019-09-16] MEDS: NITROGLYCERIN 0.4 MG/HR (10 MG) PATCH TD SCH (09:00)
[2019-09-16] MEDS: FOLIC ACID 1 MG in NA CHLORIDE 0.9% 50 ML IV SCH (09:33)
[2019-09-16] MEDS: dexAMETHasone 4 MG/ML VIAL IV SCH (09:36)
[2019-09-16] MEDS: CLOPIDOGREL 75 MG TABLET PO SCH (09:36)
[2019-09-16] MEDS: ASPIRIN EC 81 MG TAB PO SCH (09:36)
[2019-09-16] MEDS: ENOXAPARIN 30 MG/0.3 ML SQ SCH (16:12)
--- NOTE | 2019-09-16 18:06 | P.PN ---
Subjective Date of Service: 09/16/19 Chief Complaint: MAJOR STROKE Subjective: New changes (Dobhoff tube successfully placed yesterday by BACK PANEL PADDER. TFs started with Jevity 1.5 at 20 cc / hour. She is tolerating TFs but heard gurgling in upper airway when patient asleep, goes away when she awakens. RNs state respiratory therapy has been seeing patient; O2 sat 94% on 2L NC. WBC increasing 9.2 to 11.4 to 12.2. CXR pending but with some blunting of left CPA.) Review of Systems General: Weakness, Malaise (s/p large 8 cm CVA on 09-11-19) Neurological: Weakness, Incoordination, Change in Speech (Aphasia) Physical Examination - Vital Signs Temperature: 97.4 F Blood Pressure: 143/64 Pulse: 75 Respirations: 20 Pulse Ox (%): 95 - Physical Exam General: Alert, Disheveled (s/p CVA) HEENT: Atraumatic, Normocephalic, PERRLA, EOMI Neck: Supple Respiratory: Other (gurgling in the upper airway when asleep only, goes away upon awakening) Cardiovascular: Normal pulses Gastrointestinal: Soft and benign, No tenderness, No rebound, No guarding (obese) Neurological: Other (dense R hemiparesis, aphasia, partial facial droop) - Studies Medications List Reviewed: Yes Assessment And Plan - Current Problems (Diagnosis) (1) Aphasia Current Visit: Yes Status: Acute (2) Dysphagia Current Visit: Yes Status: Acute (3) Elevated WBC count Current Visit: Yes Status: Acute (4) Arterial ischemic stroke, MCA, left, acute Current Visit: Yes Status: Acute (5) Right hemiplegia Current Visit: Yes Status: Acute - Plan REC: 1) increase TF to 40 cc/o with water boluses 2) stop PPN 3) IV Zosyn with increasing WBC and gurgling in the upper airway 4) recheck CXR in AM
[2019-09-16] MEDS: METOPROLOL TARTRATE 5 MG/5 ML INJ IV PRN (21:43)
--- NOTE | 2019-09-16 22:05 | P.PN ---
Subjective Date of Service: 09/16/19 Chief Complaint: MAJOR STROKE Subjective: No new changes MS. SPIVEY IS NOT IMPROVING. SHE IS THE SAME. I TALKED TO TODAY. HE WANTS HER HOME PER HER WISHES AND NOT NH. SHE WILL END UP NEEDING 24 HOUR CARE. Physical Examination - Vital Signs Temperature: 97.6 F Blood Pressure: 193/74 Pulse: 85 Respirations: 20 Pulse Ox (%): 97 - Physical Exam General: Alert, In no apparent distress HEENT: Atraumatic, PERRLA, EOMI Neck: Supple, JVD not distended Respiratory: Clear to auscultation bilaterally, Normal air movement Cardiovascular: Regular rate/rhythm, Normal S1 S2 Gastrointestinal: Normal bowel sounds, No tenderness Musculoskeletal: No tenderness Integumentary: No rashes Neurological: Abnormal speech, Abnormal strength (R HEMIPLEGIA.) Lymphatics: No axilla or inguinal lymphadenopathy - Studies Medications List Reviewed: Yes Assessment And Plan - Current Problems (Diagnosis) (1) Right hemiplegia Current Visit: Yes Status: Acute Plan: SHE IS NOT ABLE TO TAKE ANYTHING ORAL. SHE IS BREATHING HEAVY AND RAPID. I SUSPECT SHE WILL HAVE A POOR OUTCOME. I TALKED TO . HE WANTS DNR STATUS. KEEP HER NPO. IV ON SALINELOCK NOW SHE HAD MILD CHF ON CXR. NOW HEMIPARESIS. REFER TO REHAB. START ASPIRIN VIA DOBHHOFF TUBE. I AM WAITING FOR REHAB ANSWER. SHE WILL END UP IN NH. PROGNOSIS IS POOR. SHE WILL NEED G TUBE SHE IS HIGH RISK FOR ASPIRATION. I TALKED TO DR. RODRIGUEZ. HE CAN'T DO G TUBE FOR TWO WEEKS. I ASKED IF HE CAN INSERT DOBHOFF WE NEED TO FEED HER NURSES WERE NOT ABLE TO DO IT. HOME WITH HOME HEALTH. HOSPITAL BED. BEDSIDE COMMODE. CONSULT COAL TRAMMER. (2) Arterial ischemic stroke, MCA, left, acute Current Visit: Yes Status: Acute Plan: GLOBAL APHASIA. AND SEVERE R HEMIPLEGIA. OBTUNDATION. MAY END UP IN NH OR HOSPICE. (3) Dehydration Current Visit: Yes Status: Acute Plan: IV FLUIDS. HALF NS LONG SHE IS HERE.
[2019-09-16] MEDS: NACHLORIDE 0.45% 1,000 ML IV SCH (22:51)
[2019-09-17] MEDS: IPRATROPIUM BROM 0.5MG/2.5ML NEB SCH ×4 (00:50→20:10)
[2019-09-17] MEDS: ALBUTEROL 2.5 MG/3 ML NEB SOL NEB PRN (00:50)
[2019-09-17] MEDS: JEVITY 1.5 CAL LIQUID 1,000 ML BOT FT SCH (02:41)
[2019-09-17 04:29] LABS: Absolute Lymphocytes (CBC) 1.8 K/uL (0.7-4.9); Basophils % 0.5 % (0-1.3); Hematocrit 38.5 % (36.0-45.0); Lymphocytes % 14.8 % (15.3-44.8); MPV 8.7 fL (7.6-11.3); RBC Red Blood Cell Count 4.33 M/uL (3.86-4.86)
[2019-09-17 04:35] LABS: Magnesium 2.5 mg/dL (1.8-2.4); Phosphorus 4.3 mg/dL (2.5-4.9); Potassium 4.6 mmol/L (3.5-5.1)
--- NOTE | 2019-09-17 08:44 | RAD REPORT ---
EXAM DESCRIPTION: RAD - Chest Single View - 09/17/2019 5:44 am CLINICAL HISTORY: abnormal last CXR -> f/u, incr WBC Chest pain. COMPARISON: Chest Single View dated 09/16/2019; Abdomen 1 View (KUB) dated 09/15/2019; Chest Single View dated 09/13/2019; Chest Single View dated 09/11/2019 FINDINGS: Portable technique limits examination quality. Mild interstitial prominence is again seen with small bilateral pleural effusions, unchanged. Heart i s moderately enlarged in size. Right-sided PICC line has tip in the SVC. Tip of the enteric tube is d ifficult to localize due to technical factors.
[2019-09-17] MEDS: CLOPIDOGREL 75 MG TABLET PO SCH (09:25)
[2019-09-17] MEDS: ASPIRIN 81 MG CHEWABLE TABLET PO SCH (09:25)
[2019-09-17] MEDS: NITROGLYCERIN 0.4 MG/HR (10 MG) PATCH TD SCH (10:15)
[2019-09-17] MEDS: METOPROLOL TARTRATE 5 MG/5 ML INJ IV PRN ×2 (10:55→21:51)
--- NOTE | 2019-09-17 11:27 | RAD REPORT ---
EXAM DESCRIPTION: RAD - Chest Single View - 09/16/2019 2:36 am CLINICAL HISTORY: S/P PICC line TECHNIQUE: Single frontal view of the chest is submitted. COMPARISON: None available for comparison FINDINGS: Heart: The cardiothoracic silhouette is enlarged, in part accentuated by portable techniqu e and degree of inspiration. Lungs: Low lung volumes. Patchy bibasilar opacities. Mediastinum: Thoracic aortic atherosclerosis. Pleura: Blunting of the costophrenic angles bilaterally. Bones: Intact Upper abdomen: Unremarkable Other: Right upper extremity PICC tip projects over the mid to distal superior vena cava. IMPRESSION: 1. Right upper extremity PICC tip projects over the mid to distal superior vena cava. 2. Patchy bibasilar opacities (atelectasis and/or infiltrate). Possible small bilateral pleural eff usions. Electronically signed by: Sergio Cid MD 09/16/2019 3:02 AM CDT Due to temporary technical issues with the PACS/Fluency reporting system, reports are being signed by the in house radiologist without review as a courtesy to ensure prompt reporting. The interpreting r adiologist is fully responsible for the content of the report.
[2019-09-17] MEDS: NACHLORIDE 0.45% 1,000 ML IV SCH (11:55)
[2019-09-17] MEDS ORDERED: JEVITY 1.5 CAL LIQUID 1,000 ML BOT FT SCH (12:00)
[2019-09-17] MEDS: PIPER/TAZO/NS 3.375gm 3.375 GM/100 ML BAG IVPB SCH ×2 (13:06→17:56)
[2019-09-17] MEDS ORDERED: PIPER/TAZO/NS 3.375gm 3.375 GM/100 ML BAG IVPB SCH (17:00)
[2019-09-17] MEDS: ENOXAPARIN 30 MG/0.3 ML SQ SCH (17:59)
--- NOTE | 2019-09-17 21:51 | PN ---
Subjective: Mrs. Santillan is doing poorly. Denies chest pain, nausea, vomiting. She is totally paralyzed on right side. is thinking there is some movement in the right upper limb, but I have not seen it yet. Physical Examination: Vital Signs: Blood pressure 160/73. Chest: Clear. Heart: Regular. NO MURMURS Neurological: Right hemiplegia. Assessment And Planning: Major stroke. Recommend hospice, but he is not ready for hospice yet. We will be doing home health for a while, then possibly manager of change to hospice. Talked to Kathy, the charge nurse to get [facility] because I am working with [facility] for hospice and it will be good to keep the same team when it is time to transition. Prognosis remains overall poor. ELODIA/CHRISTIAN Voice ID: [id number] Report ID: [id number] BRADY
[2019-09-18] MEDS: PIPER/TAZO/NS 3.375gm 3.375 GM/100 ML BAG IVPB SCH (00:33)
[2019-09-18] MEDS: IPRATROPIUM BROM 0.5MG/2.5ML NEB SCH ×4 (00:50→20:20)
[2019-09-18] MEDS: NACHLORIDE 0.45% 1,000 ML IV SCH (00:54)
[2019-09-18 04:37] LABS: Absolute Lymphocytes (CBC) 1.7 K/uL (0.7-4.9); Hematocrit 39.2 % (36.0-45.0); Lymphocytes % 13.6 % (15.3-44.8); MPV 8.8 fL (7.6-11.3); RBC Red Blood Cell Count 4.37 M/uL (3.86-4.86)
[2019-09-18] MEDS: METOPROLOL TARTRATE 5 MG/5 ML INJ IV PRN ×2 (04:43→22:06)
[2019-09-18 04:48] LABS: Albumin 2.9 g/dL (3.4-5.0); Bilirubin Total 0.4 mg/dL (0.2-1.0); Potassium 4.5 mmol/L (3.5-5.1); Protein, Total 6.7 g/dL (6.4-8.2)
[2019-09-18] MEDS: ALBUTEROL 2.5 MG/3 ML NEB SOL NEB PRN ×2 (07:35→12:24)
[2019-09-18] MEDS: NITROGLYCERIN 0.4 MG/HR (10 MG) PATCH TD SCH (08:01)
[2019-09-18] MEDS: CLOPIDOGREL 75 MG TABLET PO SCH (08:05)
[2019-09-18] MEDS: ASPIRIN 81 MG CHEWABLE TABLET PO SCH (08:05)
[2019-09-18] MEDS ORDERED: CLONIDINE 0.3 MG/PATCH TD SCH (09:00)
[2019-09-18] MEDS ORDERED: FUROSEMIDE 40 MG/4 ML VIAL IV ONE (09:29)
[2019-09-18] MEDS: JEVITY 1.5 CAL LIQUID 1,000 ML BOT FT SCH (12:03)
[2019-09-18] MEDS: ENOXAPARIN 30 MG/0.3 ML SQ SCH (16:15)
--- NOTE | 2019-09-18 22:21 | P.PN ---
Subjective Date of Service: 09/18/19 Chief Complaint: MAJOR STROKE Subjective: No new changes MS. SPIVEY IS NOT IMPROVING. SHE IS THE SAME. I TALKED TO TODAY. HE WANTS HER HOME PER HER WISHES AND NOT NH. SHE WILL END UP NEEDING 24 HOUR CARE. WANTS HOME HEALTH HE IS NOT READY FOR HOSPICE YET. Review of Systems 10-point ROS is otherwise unremarkable General: Weakness Physical Examination - Vital Signs Temperature: 97.3 F Blood Pressure: 180/78 Pulse: 88 Respirations: 20 Pulse Ox (%): 98 - Physical Exam General: Mild distress, Obese HEENT: Atraumatic, PERRLA, EOMI Neck: Supple, JVD not distended Respiratory: Clear to auscultation bilaterally, Normal air movement Cardiovascular: Regular rate/rhythm, Normal S1 S2 Gastrointestinal: Normal bowel sounds, No tenderness Musculoskeletal: No tenderness Integumentary: No rashes Neurological: Abnormal speech, Abnormal strength Lymphatics: No axilla or inguinal lymphadenopathy - Studies Medications List Reviewed: Yes Assessment And Plan - Current Problems (Diagnosis) (1) Right hemiplegia Current Visit: Yes Status: Acute Plan: SHE IS NOT ABLE TO TAKE ANYTHING ORAL. SHE IS BREATHING HEAVY AND RAPID. I SUSPECT SHE WILL HAVE A POOR OUTCOME. I TALKED TO . HE WANTS DNR STATUS. KEEP HER NPO. IV ON SALINELOCK NOW SHE HAD MILD CHF ON CXR. NOW HEMIPARESIS. REFER TO REHAB. START ASPIRIN VIA DOBHHOFF TUBE. I AM WAITING FOR REHAB ANSWER. SHE WILL END UP IN NH. PROGNOSIS IS POOR. SHE WILL NEED G TUBE SHE IS HIGH RISK FOR ASPIRATION. I TALKED TO DR. RODRIGUEZ. HE CAN'T DO G TUBE FOR TWO WEEKS. I ASKED IF HE CAN INSERT DOBHOFF WE NEED TO FEED HER NURSES WERE NOT ABLE TO DO IT. HOME WITH HOME HEALTH. HOSPITAL BED. BEDSIDE COMMODE. CONSULT INSPECTOR AUTOMATIC TYPEWRITER. WE FILLED FORMS FOR HOSPITAL BED. SHE WILL GET IT SOON. DC IN AM. (2) Arterial ischemic stroke, MCA, left, acute Current Visit: Yes Status: Acute Plan: GLOBAL APHASIA. AND SEVERE R HEMIPLEGIA. OBTUNDATION. MAY END UP IN NH OR HOSPICE. (3) Dehydration Current Visit: Yes Status: Acute Plan: IV FLUIDS. HALF NS LONG SHE IS HERE.
[2019-09-19] MEDS: IPRATROPIUM BROM 0.5MG/2.5ML NEB SCH ×4 (00:10→19:20)
[2019-09-19] MEDS: METOPROLOL TARTRATE 5 MG/5 ML INJ IV PRN (02:48)
[2019-09-19] MEDS: ALBUTEROL 2.5 MG/3 ML NEB SOL NEB PRN (07:25)
--- NOTE | 2019-09-19 08:42 | RAD REPORT ---
EXAM DESCRIPTION: Abelardo Single View09/19/2019 8:25 am CLINICAL HISTORY: Shortness breath COMPARISON: September 16 FINDINGS: The lungs appear clear of acute infiltrate. The heart is borderline enlarged. PICC line in place There may be small left pleural effusion
[2019-09-19] MEDS: NITROGLYCERIN 0.4 MG/HR (10 MG) PATCH TD SCH (09:31)
[2019-09-19] MEDS: CLOPIDOGREL 75 MG TABLET PO SCH (09:33)
[2019-09-19] MEDS: ASPIRIN 81 MG CHEWABLE TABLET PO SCH (09:33)
[2019-09-19] MEDS: ARFORMOTEROL TARTRATE 15 MCG/2 ML VIAL.NEB NEB SCH ×2 (09:40→19:20)
--- NOTE | 2019-09-19 13:13 | P.PN ---
Subjective Date of Service: 09/19/19 Chief Complaint: MAJOR STROKE, dysphagia Subjective: Improving (Tolerating TFs.) Physical Examination - Vital Signs Temperature: 96.7 F Blood Pressure: 140/90 Pulse: 70 Respirations: 18 Pulse Ox (%): 91 - Studies Medications List Reviewed: Yes Assessment And Plan - Current Problems (Diagnosis) (1) Aphasia Current Visit: Yes Status: Acute (2) Dysphagia Current Visit: Yes Status: Acute (3) Elevated WBC count Current Visit: Yes Status: Acute (4) Arterial ischemic stroke, MCA, left, acute Current Visit: Yes Status: Acute (5) Right hemiplegia Current Visit: Yes Status: Acute - Plan REC: 1) continue TFs & water boluses 2) monitor labs periodically 3) consider EGD with PEG after neurology clearance, s/p large 8 cm left MCA stroke 09-11-19
[2019-09-19] MEDS: ENOXAPARIN 30 MG/0.3 ML SQ SCH (16:18)
[2019-09-19] MEDS: JEVITY 1.5 CAL LIQUID 1,000 ML BOT FT SCH (19:40)
--- NOTE | 2019-09-19 21:21 | P.PN ---
Subjective Date of Service: 09/19/19 Chief Complaint: DYSPNEA Subjective: No new changes MS. SPIVEY IS NOT IMPROVING. SHE IS THE SAME. I TALKED TO TODAY. HE WANTS HER HOME PER HER WISHES AND NOT NH. SHE WILL END UP NEEDING 24 HOUR CARE. WANTS HOME HEALTH HE IS NOT READY FOR HOSPICE YET. MRS. SPIVEY IS NOT IMPROVING FOR HER STROKE. HER DYSPNEA IS GETTING WORSE MAINLY FROM COPD. Review of Systems is unable to be obtained Physical Examination - Vital Signs Temperature: 97.5 F Blood Pressure: 150/65 Pulse: 75 Respirations: 16 Pulse Ox (%): 95 - Physical Exam General: Mild distress, Moderate distress, Obese HEENT: Atraumatic, PERRLA, EOMI Neck: Supple, JVD not distended Respiratory: Clear to auscultation bilaterally, Normal air movement Cardiovascular: Regular rate/rhythm, Normal S1 S2 Gastrointestinal: Normal bowel sounds, No tenderness Musculoskeletal: No tenderness Integumentary: No rashes Neurological: Abnormal speech (GLOBAL APHASIA.), Abnormal strength (R HEMIPLEGIA, TOTAL. ) Lymphatics: No axilla or inguinal lymphadenopathy - Studies Medications List Reviewed: Yes Assessment And Plan - Current Problems (Diagnosis) (1) Right hemiplegia Current Visit: Yes Status: Acute Plan: SHE IS NOT ABLE TO TAKE ANYTHING ORAL. SHE IS BREATHING HEAVY AND RAPID. I SUSPECT SHE WILL HAVE A POOR OUTCOME. I TALKED TO . HE WANTS DNR STATUS. KEEP HER NPO. IV ON SALINELOCK NOW SHE HAD MILD CHF ON CXR. NOW HEMIPARESIS. REFER TO REHAB. START ASPIRIN VIA DOBHHOFF TUBE. I AM WAITING FOR REHAB ANSWER. SHE WILL END UP IN NH. PROGNOSIS IS POOR. SHE WILL NEED G TUBE SHE IS HIGH RISK FOR ASPIRATION. I TALKED TO DR. RODRIGUEZ. HE CAN'T DO G TUBE FOR TWO WEEKS. I ASKED IF HE CAN INSERT DOBHOFF WE NEED TO FEED HER NURSES WERE NOT ABLE TO DO IT. HOME WITH HOME HEALTH. HOSPITAL BED. BEDSIDE COMMODE. CONSULT AUTOMOTIVE FINANCE MANAGER. WE FILLED FORMS FOR HOSPITAL BED. SHE WILL GET IT SOON. DC IN AM. (2) Arterial ischemic stroke, MCA, left, acute Current Visit: Yes Status: Acute Plan: GLOBAL APHASIA. AND SEVERE R HEMIPLEGIA. OBTUNDATION. MAY END UP IN NH OR HOSPICE. (3) Dehydration Current Visit: Yes Status: Acute Plan: IV FLUIDS. HALF NS LONG SHE IS HERE. (4) COPD (chronic obstructive pulmonary disease) Current Visit: Yes Status: Acute Plan: FORMER HEAVY SMOKER. NEBS AND ADD MELVIN. PROGNOSIS IS POOR. Qualifiers: COPD type: COPD with acute exacerbation Qualified Code(s): J44.1 - Chronic obstructive pulmonary disease with (acute) exacerbation
[2019-09-20] MEDS: IPRATROPIUM BROM 0.5MG/2.5ML NEB SCH ×2 (00:50→08:00)
[2019-09-20] MEDS: ARFORMOTEROL TARTRATE 15 MCG/2 ML VIAL.NEB NEB SCH (08:00)
[2019-09-20 08:53] VITALS: O2SAT 96
[2019-09-20] MEDS: ASPIRIN 81 MG CHEWABLE TABLET PO SCH (09:17)
[2019-09-20] MEDS: NITROGLYCERIN 0.4 MG/HR (10 MG) PATCH TD SCH (09:17)
[2019-09-20] MEDS: CLOPIDOGREL 75 MG TABLET PO SCH (09:17)
[2019-09-20] MEDS: METOPROLOL TARTRATE 5 MG/5 ML INJ IV PRN (11:37)
[2019-09-20 12:23] VITALS: BP 192/77; TEMP 96.8
== END 2019-09-20 12:15 | disposition home health service (06) | DRG 65 ==
LOC: ER 16:11 → ERHOLD 22:05 → 2ND 22:17 → 3RD-ICU 22:55 → 2ND 09-13 12:32
PROVIDERS: ADMIT Internal Medicine; ATTEND Internal Medicine
PROC: 0DH63UZ Insertion of Feeding Device into Stomach, Percutaneous Approach (ICD-10-PCS; 2019-09-15)
PROC: 02HV33Z Insertion of Infusion Device into Superior Vena Cava, Percutaneous Approach (ICD-10-PCS; principal; 2019-09-16)
DX: I63.9 Cerebral infarction, unspecified (principal); G81.91 Hemiplegia, unspecified affecting right dominant side; J44.1 Chronic obstructive pulmonary disease with (acute) exacerbation; D72.829 Elevated white blood cell count, unspecified; E78.5 Hyperlipidemia, unspecified; R13.10 Dysphagia, unspecified; I10 Essential (primary) hypertension; E86.0 Dehydration; R47.01 Aphasia; Z88.4 Allergy status to anesthetic agent; Z88.1 Allergy status to other antibiotic agents; Z88.5 Allergy status to narcotic agent; Z79.890 Hormone replacement therapy; Z79.02 Long term (current) use of antithrombotics/antiplatelets; Z79.899 Other long term (current) drug therapy; Z96.651 Presence of right artificial knee joint; Z95.5 Presence of coronary angioplasty implant and graft; E66.9 Obesity, unspecified; Z68.35 Body mass index [BMI] 35.0-35.9, adult; R29.810 Facial weakness; Z11.59 Encounter for screening for other viral diseases; R29.708 NIHSS score 8; R40.2423 Glasgow coma scale score 9-12, at hospital admission; Z66 Do not resuscitate; Z87.891 Personal history of nicotine dependence
CPT/HCPCS: 36415; 36569; 70450; 71045; 74018; 74230; 80048; 80053; 80061; 80076; 82550; 82553; 82947; 83735; 84100; 84134; 84484; 85025; 85610; 85730; 92610; 92611; 93005; 93880; 94640; 96365; 96366; 96368; 97110; 97112; 97161; 97530; 99285; J0360; J1650; J1940; J2543; J2997; J7030; J7605; U0002